=== PATIENT | male | born 1960 | race American Indian/Alaskan Native ===

== ENCOUNTER 2018-01-16 10:30 | Inpatient (IN) | payer MEDICAID, OTHER ==
--- NOTE | 2018-01-16 11:19 | ED PDOC ---
Arrival/HPI - History of Present Illness Time/Duration: 1-3 hours <John Finney - Last Filed: 01/16/18 13:53> <Tyrese Lawrence - Last Filed: 01/16/18 15:40> - General Chief Complaint: Shortness Of Breath Time Seen by Provider: 01/16/18 10:43 - History of Present Illness Narrative History of Present Illness (Text): Patient is a 57 year old male with a past medical history of DM2 and hypertension presenting to the emergency room with a past medical history of shortness of breath. He came home from work around 7 am feeling completely normal and went to sleep. Around 930am he woke up sweating and was very short of breath. "I was breathing very fast and could not catch my breath." This has never happened to him before. He attempted to take a shower but was still short of breath so he decided he had to come to the hospital. Other than the shortness of breath and diaphoresis, the patient denies any other complaints. Denies fevers, chills, nausea, vomiting, diarrhea, constipation, chest pain, abdominal pain, headaches, blurred vision, double vision, numbness tingling, sedentary lifestyle, leg pain, edema, recent surgery or recent travel. Patient moved to the [facility] from [place] years ago. Both of his parents from old age , but states that they never saw doctors so he does not know any family history of diseases or blood disorders. PMD: Dr. Momin (follows up with regularly every 6 months for blood work) (John Finney) Past Medical History - Provider Review Nursing Documentation Reviewed: Yes - Travel History Have you recently traveled outside [place] w/in the past 3 mons?: No - Cardiac Hx Hypertension: Yes - Endocrine/Metabolic Hx Diabetes Mellitus Type 2: Yes - Psychiatric Hx Substance Use: No <John Finney - Last Filed: 01/16/18 13:53> Family/Social History - Physician Review Nursing Documentation Reviewed: Yes Family/Social History: Unknown Family HX Smoking Status: Current Some Days Smoker Hx Alcohol Use: No Hx Substance Use: No <John Finney - Last Filed: 01/16/18 13:53> Allergies/Home Meds <John Finney - Last Filed: 01/16/18 13:53> <Tyrese Lawrence - Last Filed: 01/16/18 15:40> Allergies/Adverse Reactions: Allergies No Known Allergies Allergy (Verified 01/16/18 10:42) Home Medications: Home Meds Medication Instructions Recorded Confirmed metFORMIN [glucOPHAGE] 500 mg PO BID 01/16/18 01/16/18 Review of Systems - Physician Review All systems were reviewed & negative as marked: Yes - Review of Systems Constitutional: Normal. absent: Fatigue, Fevers Eyes: Normal. absent: Vision Changes ENT: Normal. absent: Sore Throat, Rhinorrhea, Sinus Congestion Respiratory: SOB (woke up out of sleep SOB). absent: Cough, Sputum, Wheezing Cardiovascular: Normal. absent: Chest Pain, Palpitations, Edema, Calf Pain, Syncope Gastrointestinal: Normal. absent: Abdominal Pain, Constipation, Diarrhea, Nausea, Vomiting Musculoskeletal: Normal. absent: Arthralgias, Back Pain Skin: Normal. absent: Rash, Pruritis Neurological: Normal. absent: Headache, Dizziness, Focal Weakness Endocrine: Diaphoresis (woke up out of sleep sweating) Hemo/Lymphatic: Normal Psychiatric: Normal <John Finney - Last Filed: 01/16/18 13:53> Physical Exam Vital Signs Reviewed: Yes Temperature: Afebrile Blood Pressure: Hypertensive Pulse: Tachycardic Respiratory Rate: Normal Appearance: Positive for: Well-Appearing, Non-Toxic, Comfortable Pain Distress: None Mental Status: Positive for: Alert and Oriented X 3 - Systems Exam Head: Present: Atraumatic, Normocephalic Pupils: Present: PERRL Extroacular Muscles: Present: EOMI Conjunctiva: Present: Normal Mouth: Present: Moist Mucous Membranes Nose (External): Present: Atraumatic Nose (Internal): Present: Normal Inspection, No Active Bleeding, Moist Neck: Present: Normal Range of Motion Respiratory/Chest: Present: Clear to Auscultation, Good Air Exchange, Other ( Patient states he feels like he has to actively work to breathe. "I do not feel normal."). No: Respiratory Distress, Accessory Muscle Use, Wheezes, Rales, Rhonchi Cardiovascular: Present: Regular Rate and Rhythm, Normal S1, S2. No: Murmurs Abdomen: No: Tenderness, Distention, Peritoneal Signs Upper Extremity: Present: Normal Inspection, NORMAL PULSES, Neurovascularly Intact. No: Cyanosis, Edema Lower Extremity: Present: Normal Inspection, NORMAL PULSES, Neurovascularly Intact. No: Edema, CALF TENDERNESS, Tenderness, Erythema Neurological: Present: GCS=15, CN II-XII Intact, Speech Normal, Motor Func Grossly Intact Skin: Present: Warm, Dry, Normal Color. No: Rashes Lymphatic: No: Cervical Adenopathy Psychiatric: Present: Alert, Oriented x 3, Normal Insight, Normal Concentration <John Finney - Last Filed: 01/16/18 13:53> Vital Signs Temp Pulse Resp BP Pulse Ox 01/16/18 12:31 100 H 18 164/98 H 98 01/16/18 11:00 18 92 L 01/16/18 10:39 97.2 F L 115 H 18 163/102 H 92 L Medical Decision Making Reassessment Condition: Improving,but remains with symptoms - Lab Interpretations I have reviewed the lab results: Yes - RAD Interpretation Certified Nurse Midwife: Radiologist - EKG Interpretation Interpreted by ED Physician: Yes Type: 12 lead EKG Comparison: No previous EKG avail. <John Finney - Last Filed: 01/16/18 13:53> <Tyrese Lawrence - Last Filed: 01/16/18 15:40> ED Course and Treatment: Patient is tachycardic and hypertensive on exam. He appears comfortable and speaking in full sentences but states he feels he has to work to breath. He was hypoxic upon arrival at 92%. Given aspirin, f/u blood work and CTA of chest 01/16/18 13:54 Chest CTA - No CT scan evidence of pulmonary embolism. Nonspecific right upper lobe infiltrate and smaller lingular infiltrate and pleural parenchymal change. Mild peribronchial changes are seen elsewhere. The infiltrate in the right upper lobe has some nodular component, and may reflect an infectious or other inflammatory process. However, this should be further evaluated and followed until resolution. Nonspecific scattered mediastinal lymph nodes, possibly reactive in origin. No pleural effusion seen. Discussed with patient the CT findings and need for further testing. Patient understands and is in agreement to be admitted to the hospital. (John Finney) 01/16/18 12:06 Trever Contreras is a 57 year old male whose past medical histroy includes hypertension and diabetes, presents to the emergency room with complaints of headache, shortness of breath, and cold sweats. In agreement with resident note. Patient was seen and evaluated with resident, came up with plan and treatment together. EKG: Ordered, reviewed, and independently interpreted the EKG. Rate : 109 BPM Rhythm : Sinus Tachycardia Interpretation : PVC and SIQ3T3 pattern. Case was discussed with Dr. Bai to admit for RUL PNA with r/o TB. Patient was immediately placed in isolation. He did not express any TB risk factors. He is from [facility]. He has no productive cough. (Tyrese Lawrence) - Lab Interpretations Lab Results: 01/16/18 11:15 01/16/18 11:15 Lab Results 01/16/18 11:15: Sodium 143, Potassium 3.7, Chloride 107, Carbon Dioxide 23, Anion Gap 17, BUN 5 L, Creatinine 0.8, Est GFR ( Amer) > 60, Est GFR (Non -Af Amer) > 60, Random Glucose 118 H, Calcium 8.6, Magnesium 1.7, Total Bilirubin 0.8, AST 23, ALT 25, Alkaline Phosphatase 80, Lactate Dehydrogenase 458, Total Creatine Kinase 126, Troponin I 0.03, NT-Pro-B Natriuret Pep 1450 H, Total Protein 7.2, Albumin 4.1, Globulin 3.1, Albumin/Globulin Ratio 1.3 01/16/18 11:15: PT 11.6, INR 1.01, APTT 27.0 01/16/18 11:15: WBC 8.5, RBC 4.83, Hgb 12.1 L, Hct 35.5 L, MCV 73.5 L, MCH 25.1 , MCHC 34.1, RDW 14.3, Plt Count 207, MPV 10.7, Gran % 66.3, Lymph % (Auto) 24.6 , [place] % (Auto) 7.6 H, Eos % (Auto) 1.3 L, Baso % (Auto) 0.2, Gran # 5.65, Lymph # (Auto) 2.1, [place] # (Auto) 0.7 H, Eos # (Auto) 0.1, Baso # (Auto) 0.02 - RAD Interpretation Narrative RAD Interpretations (Text): 01/16/18 13:53 Chest CTA - No CT scan evidence of pulmonary embolism. Nonspecific right upper lobe infiltrate and smaller lingular infiltrate and pleural parenchymal change. Mild peribronchial changes are seen elsewhere. The infiltrate in the right upper lobe has some nodular component, and may reflect an infectious or other inflammatory process. However, this should be further evaluated and followed until resolution. Nonspecific scattered mediastinal lymph nodes, possibly reactive in origin. No pleural effusion seen. (John Finney) Radiology Orders: 01/16/18 11:01 ANGIO CHEST PE PROTOCOL [CT] Stat - EKG Interpretation EKG Interpretation (Text): Sinus Tachycardia @109bpm, right axis deviation, S1 Q3 T3 pattern seen, 1 PVC noted. (John Finney) - Medication Orders Current Medication Orders: Amlodipine Besylate (Norvasc) 5 mg PO DAILY MARY Ceftriaxone Sodium (Rocephin 1 Gram Ivpb) 1 gm in 100 mls @ 100 mls/hr IVPB DAILY MARY PRN Reason: Protocol Azithromycin (Zithromax 500mg In Ns) 500 mg in 250 mls @ 167 mls/hr IVPB DAILY MARY PRN Reason: Protocol Insulin Human Regular (Humulin R Low) 0 units SC ACHS MARY PRN Reason: Protocol Pantoprazole Sodium (Protonix Inj) 40 mg IVP DAILY MARY Discontinued Medications Aspirin (Aspirin) 325 mg PO STAT STA Stop: 01/16/18 11:00 Last Admin: 01/16/18 11:10 Dose: 325 mg Azithromycin (Zithromax) 500 mg PO STAT STA PRN Reason: Protocol Stop: 01/16/18 13:33 Last Admin: 01/16/18 15:12 Dose: 500 mg Ceftriaxone Sodium (Rocephin 1 Gram Ivpb) 1 gm in 100 mls @ 200 mls/hr IVPB STAT STA PRN Reason: Protocol Stop: 01/16/18 14:01 Last Admin: 01/16/18 15:12 Dose: 200 mls/hr eMAR Start Stop Document 01/16/18 15:12 EWO (Rec: 01/16/18 15:13 THALIA [id number]) Intravenous Solution Start Date 01/16/18 Start Time 15:12 End Date 01/16/18 End time 15:42 Total Infusion Time 30 <John Finney - Last Filed: 01/16/18 13:53> - Scribe Statement The provider has reviewed the documentation as recorded by the Scribe <Tyrese Lawrence - Last Filed: 01/16/18 15:40> - Scribe Statement Sonia Hare Provider Scribe Attestation: All medical record entries made by the Scribe were at my direction and personally dictated by me. I have reviewed the chart and agree that the record accurately reflects my personal performance of the history, physical exam, medical decision making, and the department course for this patient. I have also personally directed, reviewed, and agree with the discharge instructions and disposition. (Tyrese Lawrence) Disposition/Present on Arrival - Present on Arrival Any Indicators Present on Arrival: No History of DVT/PE: No History of Uncontrolled Diabetes: No Urinary Catheter: No History of Decub. Ulcer: No History Surgical Site Infection Following: None - Disposition Have Diagnosis and Disposition been Completed?: Yes Disposition Time: 13:56 Isolation: Contact, Airborne Patient Plan: Telemetry <John Finney - Last Filed: 01/16/18 13:53> - Disposition Patient Plan: Admission <Tyrese Lawrence - Last Filed: 01/16/18 15:40> - Disposition Diagnosis: Infiltrate of lung present on imaging of chest Disposition: HOSPITALIZED Patient Problems: Current Active Problems Problem Status Onset Infiltrate of lung present on imaging of chest Acute Condition: FAIR
[2018-01-16 11:20] LABS: BASO # 0.02 K/mm3 (0.0-2.0); BASO % 0.2 % (0.0-3.0); EOS # 0.1 (0.0-0.7); EOS % 1.3 % (1.5-5.0); GRAN # 5.65 (1.4-6.5); GRAN % 66.3 % (50.0-68.0); HEMOGLOBIN 12.1 g/dL (14.0-18.0); LYMPH # 2.1 (1.2-3.4); LYMPH % 24.6 % (22.0-35.0); MEAN CELL VOLUME 73.5 fl (80.0-105.0); MEAN CORPUSCULAR HEMOGLOBIN 25.1 pg (25.0-35.0); MEAN CORPUSCULAR HGB CONC 34.1 g/dl (31.0-37.0); MEAN PLATELET VOLUME 10.7 fl (7.0-11.0); MONO # 0.7 (0.1-0.6); MONO % 7.6 % (1.0-6.0); RBC 4.83 10^6/uL (3.5-6.1); RED CELL DISTRIBUTION WIDTH 14.3 % (11.5-14.5); WHITE BLOOD COUNT 8.5 10^3/ul (4.5-11.0)
[2018-01-16 11:37] LABS: ALB/GLOB RATIO 1.3 (1.1-1.8); ALBUMIN 4.1 g/dL (3.0-4.8); ALT/SGPT 25 U/L (7-56); AST/SGOT 23 U/L (17-59); BLOOD UREA NITROGEN 5 mg/dL (7-21); CALCIUM 8.6 mg/dL (8.4-10.5); GFR AFRICAN-AMERICAN > 60; GFR NON-AFRICAN AMERICAN > 60
[2018-01-16 11:38] LABS: INR 1.01 (0.93-1.08); PROTHROMBIN TIME 11.6 SECONDS (9.4-12.5)
[2018-01-16 11:48] LABS: TROPONIN I 0.03 ng/mL
[2018-01-16 12:20] LABS: B-TYPE NATRIURETIC PEPTIDE 1450 pg/mL (0-450)
[2018-01-16] MEDS ORDERED: Iohexol 350 MG/100 ML VIAL ONE (12:29)
--- NOTE | 2018-01-16 13:11 | CT ---
PROCEDURE: CT Chest with contrast (Pulmonary Angiogram) HISTORY: sob COMPARISON: None available. TECHNIQUE: Axial computed tomography images were obtained of the chest in the pulmonary arterial phase of enhancement. Coronal and sagittal reformatted images were created and reviewed. Intravenous contrast dose: 100 cc Radiation dose: Total exam DLP = 445 mGy-cm. This CT exam was performed using one or more of the following dose reduction techniques: Automated exposure control, adjustment of the mA and/or kV according to patient size, and/or use of iterative reconstruction technique. FINDINGS: PULMONARY ARTERIES: Unremarkable. No pulmonary embolism. AORTA: No aneurysmal dilatation. Mild atherosclerotic change LUNGS: There is evidence of focal infiltrate within the right upper lobe inferiorly with mild adjacent reticular nodular change and alveolar density. There is also a small area of pleural parenchymal change or infiltrate seen in the inferior lingula. Mild interstitial changes and some mild patchy peribronchial inflammatory changes are also seen, nonspecific. PLEURAL SPACES: No pleural effusion. No pneumothorax. HEART: Cardiomegaly. No pericardial effusion. LYMPH NODES: Mild scattered mediastinal lymph nodes are seen in the prevascular region right paratracheal region, and precarinal region. No significant hilar adenopathy is noted. Thoracic inlet shows no evidence of adenopathy. Thyroid gland is top-normal in size. No supraclavicular or axillary adenopathy is appreciated. BONES, CHEST WALL: Unremarkable. No fracture or destructive lesion. Images of the upper abdomen are grossly unremarkable but limited by contrast timing. Visualized esophagus is within normal limits. Mild atherosclerotic change of the aorta is noted. OTHER FINDINGS: Unremarkable. IMPRESSION: No CT scan evidence of pulmonary embolism. Nonspecific right upper lobe infiltrate and smaller lingular infiltrate and pleural parenchymal change. Mild peribronchial changes are seen elsewhere. The infiltrate in the right upper lobe has some nodular component, and may reflect an infectious or other inflammatory process. However, this should be further evaluated and followed until resolution. Nonspecific scattered mediastinal lymph nodes, possibly reactive in origin. No pleural effusion seen.
[2018-01-16] MEDS ORDERED: cefTRIAXone 1 gm 1 GM/100 ML BAG IVPB STA (13:32)
--- NOTE | 2018-01-16 14:52 | CP.PCM.HP ---
<Romie Ibarra - Last Filed: 01/16/18 14:58> History of Present Illness - History of Present Illness History of Present Illness: H&P note for hospitalist service - Claribel Ibarra PGY2 cc: SOB HPI: Patient is a 57yo male with history of hypertension and DM type 2 that presents c/o shortness of breath that started in the morning. He reported being woken from his sleep feeling diaphoretic, short of breath and having heart palptiations. He stated that he had never experienced anything like this in the past and promptly called EMS. He denied taking any new medications, sick contacts, recent travel or any alleviating/exacerbating factors. He reported having worked over 16 hours yesterday without any issues or symptoms during that time. In the ED, CTA was obtained which revealed no PE however nonspecific RUL infiltrate and small lingular infiltrate was noted. He denied fevers, chills , cough, focal weakness, numbness, tingling, chest pain, abdominal pain, nausea , vomiting. 12point ROS as per HPI above otherwise negative PMH: as stated above PSH: denies Allergies: NKDA Medications: Metformin and unknown blood pressure medications, doesn't recall pharmacy Social Hx: Smokes 3-4 cig/day for over 10yrs, denies alcohol and illicit drug use; works as a director of security Family Hx: Parents of old age, unknown specific family history of illness PMD: Dr. Momin Present on Admission - Present on Admission Any Indicators Present on Admission: No Past Patient History - Past Social History Smoking Status: Current Some Days Smoker - CARDIAC Hx Hypertension: Yes - ENDOCRINE/METABOLIC Hx Diabetes Mellitus Type 2: Yes - PSYCHIATRIC Hx Substance Use: No - SURGICAL HISTORY Hx Surgeries: No Meds Allergies/Adverse Reactions: Allergies Allergy/AdvReac Type Severity Reaction Status Date / Time No Known Allergies Allergy Verified 01/16/18 18:36 Physical Exam - Constitutional Appears: No Acute Distress - Head Exam Head Exam: ATRAUMATIC, NORMAL INSPECTION, NORMOCEPHALIC - Eye Exam Eye Exam: EOMI, PERRL - ENT Exam ENT Exam: Mucous Membranes Moist - Neck Exam Neck exam: Positive for: Normal Inspection - Respiratory Exam Respiratory Exam: absent: Rales, Rhonchi, Wheezes - Cardiovascular Exam Cardiovascular Exam: RRR, +S1, +S2. absent: Gallop, Rubs - GI/Abdominal Exam GI & Abdominal Exam: Soft. absent: Distended, Firm, Guarding, Rebound, Tenderness - Neurological Exam Neurological exam: Alert, CN II-XII Intact, Oriented x3 - Psychiatric Exam Psychiatric exam: Normal Affect, Normal Mood - Skin Skin Exam: Dry, Intact, Normal Color, Warm Results - Vital Signs Recent Vital Signs: Last Vital Signs Temp 97.2 F L 01/16/18 10:39 Pulse 100 H 01/16/18 12:31 Resp 18 01/16/18 12:31 BP 164/98 H 01/16/18 12:31 Pulse Ox 98 01/16/18 12:31 - Labs Result Diagrams: 01/16/18 11:15 01/16/18 11:15 Labs: Laboratory Results - last 24 hr 01/16/18 01/16/18 01/16/18 11:15 11:15 11:15 WBC 8.5 RBC 4.83 Hgb 12.1 L Hct 35.5 L MCV 73.5 L MCH 25.1 MCHC 34.1 RDW 14.3 Plt Count 207 MPV 10.7 Gran % 66.3 Lymph % (Auto) 24.6 [place] % (Auto) 7.6 H Eos % (Auto) 1.3 L Baso % (Auto) 0.2 Gran # 5.65 Lymph # (Auto) 2.1 [place] # (Auto) 0.7 H Eos # (Auto) 0.1 Baso # (Auto) 0.02 PT 11.6 INR 1.01 APTT 27.0 Sodium 143 Potassium 3.7 Chloride 107 Carbon Dioxide 23 Anion Gap 17 BUN 5 L Creatinine 0.8 Est GFR ( Amer) > 60 Est GFR (Non-Af Amer) > 60 Random Glucose 118 H Calcium 8.6 Magnesium 1.7 Total Bilirubin 0.8 AST 23 ALT 25 Alkaline Phosphatase 80 Lactate Dehydrogenase 458 Total Creatine Kinase 126 Troponin I 0.03 NT-Pro-B Natriuret Pep 1450 H Total Protein 7.2 Albumin 4.1 Globulin 3.1 Albumin/Globulin Ratio 1.3 Assessment & Plan - Assessment and Plan (Free Text) Plan: 57yo male with history of HTN and DM type 2 presents c/o shortness of breath associated with palpitations and diaphoresis likely secondary to CAP vs TB 1. RUL infiltrate -Likely secondary to CAP however must rule out TB -Blood, urine culture pending -Sputum AFB culture x3 -Started on Rocephin and Azithromycin -Procalcitonin pending -EKG reviewed -CTA reviewed; no evidence of PE, RUL infiltrate and lingular infiltrate (see full report) -BNP elevated, obtain echocardiogram on Thursday if patient can be removed from isolation -Airborn isolation -ID consulted - Dr. Ferrara 2. DM type 2 -Low dose insulin sliding scale -Fingersticks ACHS -consistent carb diet 3. Hypertension -Started on norvasc 5mg po daily 4. GI/DVT prophylaxis -protonix/SCD's Patient seen and case discussed/reviewed with attending, Dr. Bai <Geovani Bai - Last Filed: 01/18/18 15:32> Results - Vital Signs Recent Vital Signs: Last Vital Signs Temp 98.4 F 01/18/18 15:04 Pulse 102 H 01/18/18 11:07 Resp 20 01/18/18 15:04 BP 156/98 H 01/18/18 11:07 Pulse Ox 100 01/17/18 14:00 - Labs Result Diagrams: 01/18/18 07:30 01/18/18 07:30 Labs: Laboratory Results - last 24 hr 01/17/18 01/17/18 01/17/18 07:00 11:35 15:57 WBC RBC Hgb Hct MCV MCH MCHC RDW Plt Count MPV Gran % Lymph % (Auto) [place] % (Auto) Eos % (Auto) Baso % (Auto) Gran # Lymph # (Auto) [place] # (Auto) Eos # (Auto) Baso # (Auto) Sodium Potassium Chloride Carbon Dioxide Anion Gap BUN Creatinine Est GFR ( Amer) Est GFR (Non-Af Amer) POC Glucose (mg/dL) 208 H Random Glucose Calcium Phosphorus Magnesium Total Bilirubin AST ALT Alkaline Phosphatase Total Protein Albumin Globulin Albumin/Globulin Ratio Procalcitonin 0.06 L Ur L.pneumophila Ag Negative 01/17/18 01/18/18 01/18/18 21:21 07:03 07:30 WBC 6.6 RBC 4.97 Hgb 12.3 L Hct 36.1 L MCV 72.6 L MCH 24.7 L MCHC 34.1 RDW 14.2 Plt Count 206 MPV 10.4 Gran % 32.7 L Lymph % (Auto) 52.6 H [place] % (Auto) 11.4 H Eos % (Auto) 3.0 Baso % (Auto) 0.3 Gran # 2.14 Lymph # (Auto) 3.5 H [place] # (Auto) 0.8 H Eos # (Auto) 0.2 Baso # (Auto) 0.02 Sodium Potassium Chloride Carbon Dioxide Anion Gap BUN Creatinine Est GFR ( Amer) Est GFR (Non-Af Amer) POC Glucose (mg/dL) 88 82 Random Glucose Calcium Phosphorus Magnesium Total Bilirubin AST ALT Alkaline Phosphatase Total Protein Albumin Globulin Albumin/Globulin Ratio Procalcitonin Ur L.pneumophila Ag 01/18/18 01/18/18 01/18/18 07:30 07:30 11:08 WBC RBC Hgb Hct MCV MCH MCHC RDW Plt Count MPV Gran % Lymph % (Auto) [place] % (Auto) Eos % (Auto) Baso % (Auto) Gran # Lymph # (Auto) [place] # (Auto) Eos # (Auto) Baso # (Auto) Sodium 143 Potassium 3.9 Chloride 104 Carbon Dioxide 27 Anion Gap 16 BUN 7 Creatinine 0.9 Est GFR ( Amer) > 60 Est GFR (Non-Af Amer) > 60 POC Glucose (mg/dL) 138 H Random Glucose 92 Calcium 8.9 Phosphorus 4.4 Magnesium 1.9 Total Bilirubin 0.7 AST 21 ALT 33 Alkaline Phosphatase 67 Total Protein 7.1 Albumin 3.9 Globulin 3.2 Albumin/Globulin Ratio 1.2 Procalcitonin Ur L.pneumophila Ag Attending/Attestation - Attestation I have personally seen and examined this patient.: Yes I have fully participated in the care of the patient.: Yes I have reviewed all pertinent clinical information: Yes Notes (Text): 01/18/18 15:30 attending note; Patient seen and examined with resident in ER. Patient is a 57-year-old male with a past medical history of hypertension, diabetes is admitted with shortness of breath. CT chest showed right upper lobe infiltrate. Currently on respiratory isolation to rule out tuberculosis. Patient is started on Rocephin and Zithromax for community-acquired pneumonia. ID evaluation requested. Hypertension; started on Norvasc. Diabetes; continue regular insulin sliding scale. the diagnosis and follow-up plan discussed with patient in detail. patient's by the bedside. Upon discharge the patient will be referred to [facility].
[2018-01-16 15:49] LABS: PH,URINE 6.5 (4.7-8.0); URINE BILIRUBIN NEGATIVE (NEGATIVE); URINE BLOOD NEGATIVE (NEGATIVE); URINE GLUCOSE (UA) NEGATIVE (NEGATIVE); URINE LEUKOCYTE ESTERASE NEGATIVE Leu/uL (NEGATIVE); URINE PROTEIN TRACE mg/dL (<30 mg/dL); URINE UROBILINOGEN 0.2 E.U./dL (<1 E.U./dL)
[2018-01-16 15:50] LABS: URINE APPEARANCE CLEAR (CLEAR); URINE COLOR LIGHT YELLOW (YELLOW)
[2018-01-16 15:59] LABS: URINE BACTERIA FEW (NEG); URINE RBC NEGATIVE /hpf (0-2)
[2018-01-16 16:12] LABS: BARBITURATES, UR NEGATIVE (NEGATIVE); BENZODIAZEPINES, UR NEGATIVE (NEGATIVE); OPIATES, UR NEGATIVE (NEGATIVE); PHENCYCLIDINE, UR NEGATIVE (NEGATIVE)
[2018-01-16] MEDS ORDERED: guaiFENesin 100 mg/5 ml Syrup UD PO PRN (16:32)
[2018-01-16] MEDS: Insulin Reg-LOW-Coverage SC SCH ×2 (17:11→22:00)
--- NOTE | 2018-01-16 19:46 | CARD ---
APPROVED REPORT EKG Measurement Heart [id number] <Conclusion> Sinus tachycardia with occasional premature ventricular complexes Possible Left atrial enlargement Rightward axis T wave abnormality, consider inferior ischemia Abnormal ECG
[2018-01-16 20:37] VITALS: BMI 28.5
[2018-01-16] MEDS ORDERED: Pneumococcal 23-Valent Vaccine IM ONE (20:38)
[2018-01-17 07:49] LABS: BASO # 0.02 K/mm3 (0.0-2.0); BASO % 0.3 % (0.0-3.0); EOS # 0.1 (0.0-0.7); EOS % 1.5 % (1.5-5.0); GRAN # 4.18 (1.4-6.5); GRAN % 56.2 % (50.0-68.0); HEMOGLOBIN 12.1 g/dL (14.0-18.0); LYMPH # 2.5 (1.2-3.4); LYMPH % 33.2 % (22.0-35.0); MEAN CELL VOLUME 72.9 fl (80.0-105.0); MEAN CORPUSCULAR HEMOGLOBIN 24.8 pg (25.0-35.0); MEAN CORPUSCULAR HGB CONC 34.1 g/dl (31.0-37.0); MEAN PLATELET VOLUME 10.8 fl (7.0-11.0); MONO # 0.7 (0.1-0.6); MONO % 8.8 % (1.0-6.0); RBC 4.87 10^6/uL (3.5-6.1); RED CELL DISTRIBUTION WIDTH 14.3 % (11.5-14.5); WHITE BLOOD COUNT 7.4 10^3/ul (4.5-11.0)
[2018-01-17 08:03] LABS: ALB/GLOB RATIO 1.2 (1.1-1.8); ALBUMIN 3.8 g/dL (3.0-4.8); ALT/SGPT 22 U/L (7-56); AST/SGOT 21 U/L (17-59); BLOOD UREA NITROGEN 8 mg/dL (7-21); CALCIUM 8.6 mg/dL (8.4-10.5); GFR AFRICAN-AMERICAN > 60; GFR NON-AFRICAN AMERICAN > 60
[2018-01-17] MEDS: Insulin Reg-LOW-Coverage SC SCH ×3 (09:10→17:05)
[2018-01-17] MEDS: cefTRIAXone 1 gm 1 GM/100 ML BAG IVPB SCH (09:12)
[2018-01-17] MEDS: Azithromycin 500MG/NS 250ml 500 MG/250 ML BAG IVPB SCH (10:51)
--- NOTE | 2018-01-17 14:21 | CP.PCM.PN ---
<Glenn Bustamante - Last Filed: 01/17/18 15:49> Subjective - Date & Time of Evaluation Date of Evaluation: 01/17/18 Time of Evaluation: 07:20 - Subjective Subjective: IM Progress Note for Hospitalist Service Patient seen and examined at bedside. No acute events overnight. Remains on iso precautions. Reports feeling much better today, breathing feels improved and no further palpitations reported. Denies chest pain, productive cough, emesis, nausea, diaphoresis. Objective - Vital Signs/Intake and Output Vital Signs (last 24 hours): Temp Pulse Resp BP Pulse Ox 99.0 F 97 H 20 152/99 H 92 L 01/17/18 06:00 01/17/18 09:13 01/17/18 06:00 01/17/18 09:13 01/17/18 06:00 Intake and Output: 01/17/18 01/17/18 06:59 18:59 Intake Total 180 1080 Balance 180 1080 - Medications Medications: Current Medications Amlodipine Besylate (Norvasc) 5 mg PO DAILY [facility] Last Admin: 01/17/18 09:13 Dose: 5 mg Guaifenesin (Robitussin) 100 mg PO Q4H PRN PRN Reason: Cough Ceftriaxone Sodium (Rocephin 1 Gram Ivpb) 1 gm in 100 mls @ 100 mls/hr IVPB DAILY MARY PRN Reason: Protocol Last Admin: 01/17/18 09:12 Dose: 100 mls/hr Azithromycin (Zithromax 500mg In Ns) 500 mg in 250 mls @ 167 mls/hr IVPB DAILY MARY PRN Reason: Protocol Last Admin: 01/17/18 10:51 Dose: 167 mls/hr Insulin Human Regular (Humulin R Low) 0 units SC ACHS MARY PRN Reason: Protocol Last Admin: 01/17/18 11:32 Dose: Not Given Pantoprazole Sodium (Protonix Inj) 40 mg IVP DAILY [facility] Last Admin: 01/17/18 09:12 Dose: 40 mg - Labs Labs: 01/17/18 07:00 01/17/18 07:00 PT 11.6 SECONDS (9.4-12.5) 01/16/18 11:15 INR 1.01 (0.93-1.08) 01/16/18 11:15 APTT 27.0 Seconds (25.1-36.5) 01/16/18 11:15 - Additional Findings Additional findings: - Constitutional Appears: No Acute Distress, Non-toxic - Head Exam Head Exam: ATRAUMATIC, NORMAL INSPECTION, NORMOCEPHALIC - Eye Exam Eye Exam: EOMI, Normal appearance. Absent: scleral icterus, conjunctival injection - ENT Exam ENT Exam: Mucous Membranes Moist - Neck Exam Neck exam: Positive for: Normal Inspection - Respiratory Exam Respiratory Exam: CTAB, Normal Breathing Pattern. absent: Rales, Rhonchi, Wheezes - Cardiovascular Exam Cardiovascular Exam: RRR, +S1, +S2. absent: Gallop, Rubs, JVD - GI/Abdominal Exam GI & Abdominal Exam: Soft. absent: Distended, Firm, Guarding, Rebound, Tenderness - Neurological Exam Neurological exam: Awake and alert, moving all extremities spontaneously, following all commands appropriately - Psychiatric Exam Psychiatric exam: Normal Affect, Normal Mood - Skin Skin Exam: Dry, Intact, Normal Color, Warm Assessment and Plan - Assessment and Plan (Free Text) Assessment: This is a 57 yo M with PMH of HTN and DM type 2 presents c/o shortness of breath associated with palpitations and diaphoresis likely secondary to CAP, pending TB rule out. Plan: 1) Shortness of breath with palpitations/diaphoresis -PE vs CAP vs -Likely secondary to CAP, however must rule out TB -Blood, urine culture pending -Sputum AFB culture x3, Quantiferon ordered -Started on Rocephin and Azithromycin -Procalcitonin negative, Legionella negative -EKG reviewed -CTA reviewed; no evidence of PE, notable for RUL infiltrate and lingular infiltrate -BNP elevated, obtain echocardiogram on Thursday if patient can be removed from isolation -Airborne isolation -ID consulted - Dr. Ferrara; recs HIV test as well 2) DM type 2 -Low dose insulin sliding scale -Fingersticks ACHS -consistent carb diet 3) Hypertension -continue norvasc 5mg po daily Dispo: Med/Surg, Iso for TB precaution, pending AFBs/Quantiferon FEN: HHD Access: Peripheral IV Consults: ID Ppx: protonix for GI, SCDs for DVT Patient seen and case discussed/reviewed with attending, Dr. Orr. <Jeanine Orr - Last Filed: 01/23/18 13:15> Objective - Vital Signs/Intake and Output Vital Signs (last 24 hours): Temp Pulse Resp BP Pulse Ox 98.0 F 96 H 20 149/78 100 01/23/18 05:56 01/23/18 09:30 01/23/18 05:56 01/23/18 09:30 01/23/18 05:56 Intake and Output: 01/23/18 01/23/18 06:59 18:59 Intake Total 180 Output Total 0 Balance 180 - Labs Labs: 01/23/18 06:30 01/23/18 06:30 PT 11.6 SECONDS (9.4-12.5) 01/16/18 11:15 INR 1.01 (0.93-1.08) 01/16/18 11:15 APTT 27.0 Seconds (25.1-36.5) 01/16/18 11:15 Attending/Attestation - Attestation I have personally seen and examined this patient.: Yes I have fully participated in the care of the patient.: Yes I have reviewed all pertinent clinical information, including history, physical exam and plan: Yes Notes (Text): I have seen and examined patient with the resident. Agree with the above note with the following additions/ exceptions: Briefly this is 57 year old male with a past medical history of hypertension, diabetes is admitted with shortness of breath. CT chest showed right upper lobe infiltrate. Currently on respiratory isolation to rule out tuberculosis. Patient does not have any significant sputum production.Quantiferon test ordered today. Legionella is negative. Patient is afebrile and nontoxic. Continue Rocephin and Zithromax for community-acquired pneumonia. ID evaluation appreciated. Upon discharge the patient will be referred to [facility] clinic.
--- NOTE | 2018-01-17 15:10 | CP.PCM.CON ---
History of Present Illness - History of Present Illness History of Present Illness: 57 year old male with PMH of HTN, DM came in to [place] complaining of worsening shortness of breath for the past 2 days. He was also complaining of diaphoresis and chest palpitations. He has dry cough, no fevers, no nausea or vomiting, no chest pain, no sore throat, no rhinorrhea, no abdominal pain, no diarrhea, no dysuria. CT chest was done which is showing right upper lobe and lingular infiltrates with some mediastinal lymphadenopathy. Infectious diseases consult is requested to further evaluate and manage. The patient migrated [place] the [place] ago from [facility]. He states he has not had a tuberculin skin test. He denies recent travel outside of [place] in the past 3 months. He works as a application security specialist in a building. Review of Systems - Review of Systems All systems: reviewed and no additional remarkable complaints except (as per HPI ) Past Patient History - Past Social History Smoking Status: Former Smoker - CARDIAC Hx Cardiac Disorders: Yes Hx Hypertension: Yes - PULMONARY Hx Respiratory Disorders: Yes (smoked 4 cig a day-QUIT 10 YRS AGO) Hx Pneumonia: Yes (RUL INFILTRATE 01-16-18) - NEUROLOGICAL Hx Neurological Disorder: No - HEENT Hx HEENT Problems: No - RENAL Hx Chronic Kidney Disease: No - ENDOCRINE/METABOLIC Hx Endocrine Disorders: Yes Hx Diabetes Mellitus Type 2: Yes - HEMATOLOGICAL/ONCOLOGICAL Hx Blood Disorders: No - INTEGUMENTARY Hx Dermatological Problems: Yes (VITILIGO) - MUSCULOSKELETAL/RHEUMATOLOGICAL Hx Musculoskeletal Disorders: No Hx Falls: Yes - GASTROINTESTINAL Hx Gastrointestinal Disorders: No - GENITOURINARY/GYNECOLOGICAL Hx Genitourinary Disorders: Yes Hx Prostate Problems: Yes - PSYCHIATRIC Hx Psychophysiologic Disorder: No Hx Substance Use: No - SURGICAL HISTORY Hx Surgeries: Yes Other/Comment: MINOR SX. I & D OF RECTAL ABSCESS Meds Allergies/Adverse Reactions: Allergies Allergy/AdvReac Type Severity Reaction Status Date / Time No Known Allergies Allergy Verified 01/16/18 18:36 - Medications Medications: Current Medications Amlodipine Besylate (Norvasc) 5 mg PO DAILY [facility] Guaifenesin (Robitussin) 100 mg PO Q4H PRN PRN Reason: Cough Ceftriaxone Sodium (Rocephin 1 Gram Ivpb) 1 gm in 100 mls @ 100 mls/hr IVPB DAILY [facility]ARY PRN Reason: Protocol Azithromycin (Zithromax 500mg In Ns) 500 mg in 250 mls @ 167 mls/hr IVPB DAILY MARY PRN Reason: Protocol Insulin Human Regular (Humulin R Low) 0 units SC ACHS MARY PRN Reason: Protocol Last Admin: 01/16/18 22:00 Dose: Not Given Pantoprazole Sodium (Protonix Inj) 40 mg IVP DAILY [facility] Physical Exam - Constitutional Appears: Non-toxic, No Acute Distress - Head Exam Head Exam: NORMAL INSPECTION - ENT Exam ENT Exam: Mucous Membranes Moist - Neck Exam Neck exam: Negative for: Lymphadenopathy, Meningismus - Respiratory Exam Respiratory Exam: Rales (on the right upper lung field and lower left lung field ) - Cardiovascular Exam Cardiovascular Exam: +S1, +S2 - GI/Abdominal Exam GI & Abdominal Exam: Soft. absent: Tenderness Results - Vital Signs Recent Vital Signs: Last Vital Signs Temp 97.2 F L 01/16/18 20:22 Pulse 89 01/16/18 20:22 Resp 18 01/16/18 20:22 BP 151/88 H 01/16/18 20:22 Pulse Ox 98 01/16/18 16:00 - Labs Result Diagrams: 01/17/18 07:00 01/17/18 07:00 Labs: Laboratory Results - last 24 hr 01/16/18 01/16/18 01/16/18 14:40 14:40 14:40 WBC RBC Hgb Hct MCV MCH MCHC RDW Plt Count MPV Gran % Lymph % (Auto) [place] % (Auto) Eos % (Auto) Baso % (Auto) Gran # Lymph # (Auto) [place] # (Auto) Eos # (Auto) Baso # (Auto) Sodium Potassium Chloride Carbon Dioxide Anion Gap BUN Creatinine Est GFR ( Amer) Est GFR (Non-Af Amer) POC Glucose (mg/dL) Random Glucose Calcium Total Bilirubin AST ALT Alkaline Phosphatase Troponin I Total Protein Albumin Globulin Albumin/Globulin Ratio Procalcitonin Urine Color Light yellow Urine Appearance Clear Urine pH 6.5 Ur Specific [place] <= 1.005 Urine Protein Trace H Urine Glucose (UA) Negative Urine Ketones Negative Urine Blood Negative Urine Nitrate Negative Urine Bilirubin Negative Urine Urobilinogen 0.2 Ur Leukocyte Esterase Negative Urine RBC Negative Urine WBC 1 - 3 Ur Epithelial Cells 1 - 3 Urine Bacteria Few Urine Opiates Screen Negative Urine Methadone Screen Negative Ur Barbiturates Screen Negative Ur Phencyclidine Scrn Negative Ur Amphetamines Screen Negative U Benzodiazepines Scrn Negative U Oth Cocaine Metabols Negative U Cannabinoids Screen Negative Ur L.pneumophila Ag Negative 01/16/18 01/16/18 01/17/18 15:40 21:19 07:00 WBC 7.4 RBC 4.87 Hgb 12.1 L Hct 35.5 L MCV 72.9 L MCH 24.8 L MCHC 34.1 RDW 14.3 Plt Count 212 MPV 10.8 Gran % 56.2 Lymph % (Auto) 33.2 [place] % (Auto) 8.8 H Eos % (Auto) 1.5 Baso % (Auto) 0.3 Gran # 4.18 Lymph # (Auto) 2.5 [place] # (Auto) 0.7 H Eos # (Auto) 0.1 Baso # (Auto) 0.02 Sodium Potassium Chloride Carbon Dioxide Anion Gap BUN Creatinine Est GFR ( Amer) Est GFR (Non-Af Amer) POC Glucose (mg/dL) 166 H Random Glucose Calcium Total Bilirubin AST ALT Alkaline Phosphatase Troponin I Total Protein Albumin Globulin Albumin/Globulin Ratio Procalcitonin 0.06 L Urine Color Urine Appearance Urine pH Ur Specific [place] Urine Protein Urine Glucose (UA) Urine Ketones Urine Blood Urine Nitrate Urine Bilirubin Urine Urobilinogen Ur Leukocyte Esterase Urine RBC Urine WBC Ur Epithelial Cells Urine Bacteria Urine Opiates Screen Urine Methadone Screen Ur Barbiturates Screen Ur Phencyclidine Scrn Ur Amphetamines Screen U Benzodiazepines Scrn U Oth Cocaine Metabols U Cannabinoids Screen Ur L.pneumophila Ag 01/17/18 01/17/18 01/17/18 07:00 07:00 07:29 WBC RBC Hgb Hct MCV MCH MCHC RDW Plt Count MPV Gran % Lymph % (Auto) [place] % (Auto) Eos % (Auto) Baso % (Auto) Gran # Lymph # (Auto) [place] # (Auto) Eos # (Auto) Baso # (Auto) Sodium 141 Potassium 4.0 Chloride 103 Carbon Dioxide 24 Anion Gap 18 BUN 8 Creatinine 1.1 Est GFR ( Amer) > 60 Est GFR (Non-Af Amer) > 60 POC Glucose (mg/dL) 159 H Random Glucose 169 H Calcium 8.6 Total Bilirubin 0.8 AST 21 ALT 22 Alkaline Phosphatase 65 Troponin I 0.06 D Total Protein 7.0 Albumin 3.8 Globulin 3.2 Albumin/Globulin Ratio 1.2 Procalcitonin Urine Color Urine Appearance Urine pH Ur Specific [place] Urine Protein Urine Glucose (UA) Urine Ketones Urine Blood Urine Nitrate Urine Bilirubin Urine Urobilinogen Ur Leukocyte Esterase Urine RBC Urine WBC Ur Epithelial Cells Urine Bacteria Urine Opiates Screen Urine Methadone Screen Ur Barbiturates Screen Ur Phencyclidine Scrn Ur Amphetamines Screen U Benzodiazepines Scrn U Oth Cocaine Metabols U Cannabinoids Screen Ur L.pneumophila Ag Assessment & Plan - Assessment and Plan (Free Text) Plan: Assessment consider right upper lobe pneumonia R/O TB in this patient with probable acute congestive heart failure HTN DM Plan Started Rocephin and Zithromax pending blood, sputum cx, PCT, urine Legionella Ag; follow up sputum AFB x 3 and Quantiferon TB test BNP is elevated - patient should get 2D echo will get HIV test as well
[2018-01-18] MEDS: Insulin Reg-LOW-Coverage SC SCH ×5 (00:21→22:10)
[2018-01-18] MEDS: Pantoprazole 40 mg EC Tab PO SCH (07:51)
[2018-01-18 08:13] LABS: BASO # 0.02 K/mm3 (0.0-2.0); BASO % 0.3 % (0.0-3.0); EOS # 0.2 (0.0-0.7); GRAN # 2.14 (1.4-6.5); GRAN % 32.7 % (50.0-68.0); HEMOGLOBIN 12.3 g/dL (14.0-18.0); LYMPH # 3.5 (1.2-3.4); LYMPH % 52.6 % (22.0-35.0); MEAN CELL VOLUME 72.6 fl (80.0-105.0); MEAN CORPUSCULAR HEMOGLOBIN 24.7 pg (25.0-35.0); MEAN CORPUSCULAR HGB CONC 34.1 g/dl (31.0-37.0); MEAN PLATELET VOLUME 10.4 fl (7.0-11.0); MONO # 0.8 (0.1-0.6); MONO % 11.4 % (1.0-6.0); RBC 4.97 10^6/uL (3.5-6.1); RED CELL DISTRIBUTION WIDTH 14.2 % (11.5-14.5); WHITE BLOOD COUNT 6.6 10^3/ul (4.5-11.0)
[2018-01-18 08:20] LABS: ALB/GLOB RATIO 1.2 (1.1-1.8); ALBUMIN 3.9 g/dL (3.0-4.8); ALT/SGPT 33 U/L (7-56); AST/SGOT 21 U/L (17-59); BLOOD UREA NITROGEN 7 mg/dL (7-21); CALCIUM 8.9 mg/dL (8.4-10.5); GFR AFRICAN-AMERICAN > 60; GFR NON-AFRICAN AMERICAN > 60
[2018-01-18] MEDS: cefTRIAXone 1 gm 1 GM/100 ML BAG IVPB SCH (11:07)
--- NOTE | 2018-01-18 12:42 | CP.PCM.PN ---
<Glenn Bustamante - Last Filed: 01/18/18 12:38> Subjective - Date & Time of Evaluation Date of Evaluation: 01/18/18 Time of Evaluation: 07:30 - Subjective Subjective: IM Progress Note for Hospitalist Service Patient seen and examined at bedside. No acute events overnight. Remains on iso precautions. Reports feeling much better today, breathing feels improved and no further palpitations reported. Denies chest pain, productive cough, emesis, nausea, diaphoresis. Pt reports been having difficulty mobilizing sputum for AFB cultures despite inducement by RT. Encouraged to put whatever sputum he coughs up after inducement into container, and encouraged pt not to worry about amount as sample is examined under microscopy. Objective - Vital Signs/Intake and Output Vital Signs (last 24 hours): Temp Pulse Resp BP Pulse Ox 98.6 F 102 H 20 156/98 H 100 01/17/18 14:00 01/18/18 11:07 01/17/18 14:00 01/18/18 11:07 01/17/18 14:00 Intake and Output: 01/18/18 01/18/18 06:59 18:59 Intake Total 120 Balance 120 - Medications Medications: Current Medications Amlodipine Besylate (Norvasc) 5 mg PO DAILY [facility] Last Admin: 01/18/18 11:07 Dose: 5 mg Guaifenesin (Robitussin) 100 mg PO Q4H PRN PRN Reason: Cough Ceftriaxone Sodium (Rocephin 1 Gram Ivpb) 1 gm in 100 mls @ 100 mls/hr IVPB DAILY MARY PRN Reason: Protocol Last Admin: 01/18/18 11:07 Dose: 100 mls/hr Azithromycin (Zithromax 500mg In Ns) 500 mg in 250 mls @ 167 mls/hr IVPB DAILY MARY PRN Reason: Protocol Last Admin: 01/17/18 10:51 Dose: 167 mls/hr Insulin Human Regular (Humulin R Low) 0 units SC ACHS MARY PRN Reason: Protocol Last Admin: 01/18/18 07:51 Dose: Not Given Pantoprazole Sodium (Protonix Ec Tab) 40 mg PO 0600 [facility] Last Admin: 01/18/18 07:51 Dose: 40 mg - Labs Labs: 01/18/18 07:30 01/18/18 07:30 PT 11.6 SECONDS (9.4-12.5) 04/28/18 11:15 INR 1.01 (0.93-1.08) 01/16/18 11:15 APTT 27.0 Seconds (25.1-36.5) 01/16/18 11:15 - Additional Findings Additional findings: - Constitutional Appears: No Acute Distress, Non-toxic - Head Exam Head Exam: ATRAUMATIC, NORMAL INSPECTION, NORMOCEPHALIC - Eye Exam Eye Exam: EOMI, Normal appearance. Absent: scleral icterus, conjunctival injection - ENT Exam ENT Exam: Mucous Membranes Moist - Neck Exam Neck exam: Positive for: Normal Inspection - Respiratory Exam Respiratory Exam: CTAB, Normal Breathing Pattern. absent: Rales, Rhonchi, Wheezes - Cardiovascular Exam Cardiovascular Exam: RRR, +S1, +S2. absent: Gallop, Rubs, JVD - GI/Abdominal Exam GI & Abdominal Exam: Soft. absent: Distended, Firm, Guarding, Rebound, Tenderness - Neurological Exam Neurological exam: Awake and alert, moving all extremities spontaneously, following all commands appropriately - Psychiatric Exam Psychiatric exam: Normal Affect, Normal Mood - Skin Skin Exam: Dry, Intact, Normal Color, Warm Assessment and Plan - Assessment and Plan (Free Text) Assessment: This is a 57 yo M with PMH of HTN and DM type 2 presents c/o shortness of breath associated with palpitations and diaphoresis likely secondary to CAP, pending TB rule out. Plan: 1) Shortness of breath with palpitations/diaphoresis - improved -PE vs CAP vs CHF -Likely secondary to CAP, however must rule out TB -Blood, urine culture pending -Sputum AFB culture x1, Quantiferon ordered -Started on Rocephin and Azithromycin -Procalcitonin negative, Legionella negative -EKG reviewed -CTA reviewed; no evidence of PE, notable for RUL infiltrate and lingular infiltrate -BNP elevated, obtain echocardiogram when no longer on iso precaution -Airborne isolation -ID consulted - Dr. Ferrara; recs HIV test as well, can d/c iso if 1 AFP negative given pt low risk 2) DM type 2 -Low dose insulin sliding scale -Fingersticks ACHS -consistent carb diet 3) Hypertension -continue norvasc 5mg po daily Dispo: Med/Surg, Iso for TB precaution, pending AFBs/Quantiferon FEN: HHD Access: Peripheral IV Consults: ID Ppx: Protonix for GI, SCDs for DVT Patient seen and case discussed/reviewed with attending, Dr. Bai <Geovani Bai - Last Filed: 01/18/18 15:35> Objective - Vital Signs/Intake and Output Vital Signs (last 24 hours): Temp Pulse Resp BP Pulse Ox 98.4 F 102 H 20 156/98 H 100 01/18/18 15:04 01/18/18 11:07 01/18/18 15:04 01/18/18 11:07 01/17/18 14:00 Intake and Output: 01/18/18 01/18/18 06:59 18:59 Intake Total 120 Balance 120 - Medications Medications: Current Medications Amlodipine Besylate (Norvasc) 5 mg PO DAILY [facility] Last Admin: 01/18/18 11:07 Dose: 5 mg Azithromycin (Zithromax) 500 mg PO DAILY [facility] Guaifenesin (Robitussin) 100 mg PO Q4H PRN PRN Reason: Cough Ceftriaxone Sodium (Rocephin 1 Gram Ivpb) 1 gm in 100 mls @ 100 mls/hr IVPB DAILY [facility]ARY PRN Reason: Protocol Last Admin: 01/18/18 11:07 Dose: 100 mls/hr Insulin Human Regular (Humulin R Low) 0 units SC ACHS MARY PRN Reason: Protocol Last Admin: 01/18/18 11:23 Dose: Not Given Lisinopril (Zestril) 30 mg PO DAILY [facility] Pantoprazole Sodium (Protonix Ec Tab) 40 mg PO 0600 [facility] Last Admin: 01/18/18 07:51 Dose: 40 mg - Labs Labs: 01/18/18 07:30 01/18/18 07:30 PT 11.6 SECONDS (9.4-12.5) 01/16/18 11:15 INR 1.01 (0.93-1.08) 01/16/18 11:15 APTT 27.0 Seconds (25.1-36.5) 01/16/18 11:15 Attending/Attestation - Attestation I have personally seen and examined this patient.: Yes I have fully participated in the care of the patient.: Yes I have reviewed all pertinent clinical information, including history, physical exam and plan: Yes Notes (Text): 01/18/18 15:34 attending note; Patient seen and examined with resident. Patient is a 57-year-old male with a past medical history of hypertension, diabetes is admitted with shortness of breath. CT chest showed right upper lobe infiltrate. Currently on respiratory isolation to rule out tuberculosis. Patient does not have any significant sputum production. Case discussed with ID in detail. Quantify on test is pending. Protocol stone is negative. Legionella is negative. Patient is afebrile and nontoxic. Patient is started on Rocephin and Zithromax for community-acquired pneumonia. ID evaluation requested. Hypertension; on Norvasc. lisinopril added. Diabetes; continue regular insulin sliding scale. echocardiogram done. Results pending. Upon discharge the patient will be referred to [facility] clinic. 01/18/18 15:35
[2018-01-18] MEDS: Azithromycin 500MG/NS 250ml 500 MG/250 ML BAG IVPB SCH (13:23)
--- NOTE | 2018-01-18 19:26 | CP.PCM.PN ---
Subjective - Date & Time of Evaluation Date of Evaluation: 01/18/18 Time of Evaluation: 12:40 - Subjective Subjective: No fevers, not in distress, breathing better, no cough. Objective - Vital Signs/Intake and Output Vital Signs (last 24 hours): Temp Pulse Resp BP Pulse Ox 98.6 F 102 H 20 156/103 H 100 01/17/18 14:00 01/17/18 14:00 01/17/18 14:00 01/17/18 14:00 01/17/18 14:00 Intake and Output: 01/18/18 01/18/18 06:59 18:59 Intake Total 120 Balance 120 - Medications Medications: Current Medications Amlodipine Besylate (Norvasc) 5 mg PO DAILY [facility] Last Admin: 01/17/18 09:13 Dose: 5 mg Guaifenesin (Robitussin) 100 mg PO Q4H PRN PRN Reason: Cough Ceftriaxone Sodium (Rocephin 1 Gram Ivpb) 1 gm in 100 mls @ 100 mls/hr IVPB DAILY [facility] PRN Reason: Protocol Last Admin: 01/17/18 09:12 Dose: 100 mls/hr Azithromycin (Zithromax 500mg In Ns) 500 mg in 250 mls @ 167 mls/hr IVPB DAILY [facility]ARY PRN Reason: Protocol Last Admin: 01/17/18 10:51 Dose: 167 mls/hr Insulin Human Regular (Humulin R Low) 0 units SC ACHS MARY PRN Reason: Protocol Last Admin: 01/18/18 07:51 Dose: Not Given Pantoprazole Sodium (Protonix Ec Tab) 40 mg PO 0600 [facility] Last Admin: 01/18/18 07:51 Dose: 40 mg - Labs Labs: 01/18/18 07:30 01/18/18 07:30 PT 11.6 SECONDS (9.4-12.5) 01/16/18 11:15 INR 1.01 (0.93-1.08) 01/16/18 11:15 APTT 27.0 Seconds (25.1-36.5) 01/16/18 11:15 - Constitutional Appears: Chronically Ill - Head Exam Head Exam: NORMAL INSPECTION - Respiratory Exam Respiratory Exam: Decreased Breath Sounds - Cardiovascular Exam Cardiovascular Exam: +S1, +S2 - GI/Abdominal Exam GI & Abdominal Exam: Soft. absent: Tenderness Assessment and Plan - Assessment and Plan (Free Text) Plan: Assessment consider right upper lobe pneumonia R/O TB in this patient with probable acute congestive heart failure HTN DM Plan Started Rocephin and Zithromax day 2; cultures have been negative, PCT is less than 0.2, urine Legionella Ag is negative; follow up sputum AFB x 3 and Quantiferon TB test BNP is elevated - follow up 2D echo results follow up HIV test as well
--- NOTE | 2018-01-18 19:38 | CARD ---
APPROVED REPORT EXAM: Two-dimensional and M-mode echocardiogram with Doppler and color Doppler. INDICATION Infection:Rule out subacute bacterial endocarditis 2D DIMENSIONS Left Atrium (2D)5.1 (1.6-4.0cm)IVSd1.4 (0.7-1.1cm) LVDd5.9 (3.9-5.9cm)PWd1.6 (0.7-1.1cm) LVDs5.1 (2.5-4.0cm)FS (%) 13.8 % LVEF (%)29.1 (>50%) M-Mode DIMENSIONS Aortic Root3.50 (2.2-3.7cm)Aortic Cusp Exc.1.80 (1.5-2.0cm) Aortic Valve AoV Peak Ucjxlins579.0cm/Neva Peak GR.5mmHg Mitral Valve E/A ratio0.0 TDI E/Lateral E'0.0E/Medial E'0.0 Pulmonary Valve PV Peak Voodiazb72.3cm/sPV Peak Grad.2mmHg Tricuspid Valve TR Peak [id number] [id number] Peak Gr.39mmHg [id number] LEFT VENTRICLE The Left Ventricle is borderline dilated. There is normal left ventricular wall thickness. The systolic function is severely impaired. There is global hypokinesis of the left ventricle. Transmitral Doppler flow pattern is Grade I-abnormal relaxation pattern. No left ventricle thrombus noted on this study. RIGHT VENTRICLE The right ventricle is normal size. There is normal right ventricular wall thickness. RV Systolic function is severely reduced. ATRIA The left atrium is moderately dilated. The right atrium is mildly dilated. AORTIC VALVE The aortic valve is normal in structure. There is mild aortic regurgitation. MITRAL VALVE The mitral valve is normal in structure. Mitral regurgitation is mild to moderate. TRICUSPID VALVE There is mild to moderate pulmonary hypertension. GREAT VESSELS The aortic root is normal in size. The IVC is normal in size and collapses >50% with inspiration. <Conclusion> The Left Ventricle is borderline dilated. There is normal left ventricular wall thickness. The systolic function is severely impaired. There is global hypokinesis of the left ventricle. Transmitral Doppler flow pattern is Grade I-abnormal relaxation pattern. No left ventricle thrombus noted on this study. There is mild aortic regurgitation. Mitral regurgitation is mild to moderate. There is mild to moderate pulmonary hypertension.
[2018-01-19] MEDS: Pantoprazole 40 mg EC Tab PO SCH (05:56)
[2018-01-19 08:05] LABS: BASO # 0.02 K/mm3 (0.0-2.0); BASO % 0.3 % (0.0-3.0); EOS # 0.2 (0.0-0.7); EOS % 2.4 % (1.5-5.0); GRAN # 2.39 (1.4-6.5); GRAN % 36.2 % (50.0-68.0); HEMOGLOBIN 12.8 g/dL (14.0-18.0); LYMPH # 3.6 (1.2-3.4); LYMPH % 53.8 % (22.0-35.0); MEAN CELL VOLUME 72.7 fl (80.0-105.0); MEAN CORPUSCULAR HEMOGLOBIN 25.1 pg (25.0-35.0); MEAN CORPUSCULAR HGB CONC 34.5 g/dl (31.0-37.0); MEAN PLATELET VOLUME 9.9 fl (7.0-11.0); MONO # 0.5 (0.1-0.6); MONO % 7.3 % (1.0-6.0); RBC 5.1 10^6/uL (3.5-6.1); WHITE BLOOD COUNT 6.6 10^3/ul (4.5-11.0)
[2018-01-19] MEDS: Insulin Reg-LOW-Coverage SC SCH ×4 (08:09→22:00)
[2018-01-19 08:38] LABS: ALB/GLOB RATIO 1.3 (1.1-1.8); ALBUMIN 4.2 g/dL (3.0-4.8); ALT/SGPT 30 U/L (7-56); AST/SGOT 18 U/L (17-59); BLOOD UREA NITROGEN 10 mg/dL (7-21); CALCIUM 8.9 mg/dL (8.4-10.5); GFR AFRICAN-AMERICAN > 60; GFR NON-AFRICAN AMERICAN > 60
[2018-01-19 11:15] LABS: TROPONIN I 0.02 ng/mL
[2018-01-19] MEDS: cefTRIAXone 1 gm 1 GM/100 ML BAG IVPB SCH (12:05)
--- NOTE | 2018-01-19 14:13 | CP.PCM.PN ---
<Glenn Bustamante - Last Filed: 01/19/18 15:23> Subjective - Date & Time of Evaluation Date of Evaluation: 01/19/18 Time of Evaluation: 07:30 - Subjective Subjective: IM Progress Note for Hospitalist Service Patient seen and examined at bedside. No acute events overnight. Remains on iso precautions. Reports continuing to feel better, breathing remains improved and no further palpitations reported. Denies chest pain, productive cough, emesis, nausea, diaphoresis. 2 AFBs submitted, pending 1 more today. Of note, Echo was obtained yesterday, and was concerning for severe systolic dysfunction with LVEF of ~30%. Reviewed patient's hx, and he again denies any personal or family hx of cardiac disease, denies any episodes of crushing chest pain, and is not aware of any exposure to rheumatic fever as a child. Continues to deny chest pain, shortness of breath, or LE edema. Objective - Vital Signs/Intake and Output Vital Signs (last 24 hours): Temp Pulse Resp BP Pulse Ox 98.2 F 69 20 112/71 100 01/19/18 13:59 01/19/18 12:07 01/19/18 08:28 01/19/18 12:07 01/17/18 14:00 Intake and Output: 01/19/18 01/19/18 06:59 18:59 Intake Total 780 Balance 780 - Medications Medications: Current Medications Amlodipine Besylate (Norvasc) 5 mg PO DAILY [facility] Last Admin: 01/19/18 12:05 Dose: 5 mg Azithromycin (Zithromax) 500 mg PO DAILY [facility] Last Admin: 01/19/18 12:06 Dose: 500 mg Carvedilol (Coreg) 3.125 mg PO BID [facility] Last Admin: 01/19/18 12:07 Dose: 3.125 mg Guaifenesin (Robitussin) 100 mg PO Q4H PRN PRN Reason: Cough Ceftriaxone Sodium (Rocephin 1 Gram Ivpb) 1 gm in 100 mls @ 100 mls/hr IVPB DAILY [facility] PRN Reason: Protocol Last Admin: 01/19/18 12:05 Dose: 100 mls/hr Insulin Human Regular (Humulin R Low) 0 units SC ACHS [facility] PRN Reason: Protocol Last Admin: 01/19/18 12:05 Dose: 1 units Lisinopril (Zestril) 30 mg PO DAILY [facility] Last Admin: 01/19/18 12:06 Dose: 30 mg Pantoprazole Sodium (Protonix Ec Tab) 40 mg PO 0600 [facility] Last Admin: 01/19/18 05:56 Dose: 40 mg Spironolactone (Aldactone) 25 mg PO BID [facility] Last Admin: 01/19/18 12:07 Dose: 25 mg - Labs Labs: 01/19/18 07:45 01/19/18 07:45 PT 11.6 SECONDS (9.4-12.5) 01/16/18 11:15 INR 1.01 (0.93-1.08) 01/16/18 11:15 APTT 27.0 Seconds (25.1-36.5) 01/16/18 11:15 - Additional Findings Additional findings: - Constitutional Appears: No Acute Distress, Non-toxic - Head Exam Head Exam: ATRAUMATIC, NORMAL INSPECTION, NORMOCEPHALIC - Eye Exam Eye Exam: EOMI, Normal appearance. Absent: scleral icterus, conjunctival injection - ENT Exam ENT Exam: Mucous Membranes Moist - Neck Exam Neck exam: Positive for: Normal Inspection - Respiratory Exam Respiratory Exam: CTAB, Normal Breathing Pattern. absent: Rales, Rhonchi, Wheezes - Cardiovascular Exam Cardiovascular Exam: RRR, +S1, +S2. absent: Gallop, Rubs, JVD - GI/Abdominal Exam GI & Abdominal Exam: Soft. absent: Distended, Firm, Guarding, Rebound, Tenderness - Neurological Exam Neurological exam: Awake and alert, moving all extremities spontaneously, following all commands appropriately - Psychiatric Exam Psychiatric exam: Normal Affect, Normal Mood - Skin Skin Exam: Dry, Intact, Normal Color, Warm Assessment and Plan - Assessment and Plan (Free Text) Assessment: This is a 57 yo M with PMH of HTN and DM type 2 presents c/o shortness of breath associated with palpitations and diaphoresis likely secondary to CAP, pending TB rule out. He is now also undergoing workup for newly discovered systolic dysfunction with reduced EF (30%). Plan: 1) Shortness of breath with palpitations/diaphoresis - improved -PE vs CAP vs CHF -Likely secondary to CAP, however must rule out TB -Blood, urine culture negative x72 hrs -Sputum AFB culture x3, Quantiferon ordered; 2 AFBs sent, pending 3rd -Continue Rocephin and Azithromycin -Procalcitonin negative, Legionella negative -EKG reviewed -CTA reviewed; no evidence of PE, notable for RUL infiltrate and lingular infiltrate -BNP elevated, Echo obtained that is notable for severe LV dysfxn with LV hypokinesis and LVEF 30%, Cardio consulted -Given Echo findings, concern for CHF, pt started on Coreg 3.125mg BID and Aldactone 25mg PO BID -Airborne isolation, can d/c after first negative AFB -ID consulted - Dr. Ferrara; pending AFBs, pending HIV test -Cardio consulted, appreciate their recs 2) DM type 2 -Low dose insulin sliding scale -Fingersticks ACHS -consistent carb diet 3) Hypertension -continue norvasc 5mg po daily, continue Lisinopril 30mg daily Dispo: Med/Surg, Iso for TB precaution, pending AFBs/Quantiferon, pending Cardio eval and recs FEN: HHD Access: Peripheral IV Consults: ID Ppx: Protonix for GI, SCDs for DVT Patient seen and case discussed/reviewed with attending, Dr. Bai <Geovani Bai - Last Filed: 01/19/18 17:25> Objective - Vital Signs/Intake and Output Vital Signs (last 24 hours): Temp Pulse Resp BP Pulse Ox 98.2 F 69 20 112/71 100 01/19/18 13:59 01/19/18 12:07 01/19/18 08:28 01/19/18 12:07 01/17/18 14:00 Intake and Output: 01/19/18 01/19/18 06:59 18:59 Intake Total 780 Balance 780 - Medications Medications: Current Medications Amlodipine Besylate (Norvasc) 5 mg PO DAILY [facility] Last Admin: 01/19/18 12:05 Dose: 5 mg Azithromycin (Zithromax) 500 mg PO DAILY [facility] Last Admin: 01/19/18 12:06 Dose: 500 mg Carvedilol (Coreg) 3.125 mg PO BID [facility] Last Admin: 01/19/18 12:07 Dose: 3.125 mg Enoxaparin Sodium (Lovenox) 40 mg SC DAILY [facility] PRN Reason: Protocol Guaifenesin (Robitussin) 100 mg PO Q4H PRN PRN Reason: Cough Ceftriaxone Sodium (Rocephin 1 Gram Ivpb) 1 gm in 100 mls @ 100 mls/hr IVPB DAILY [facility] PRN Reason: Protocol Last Admin: 01/19/18 12:05 Dose: 100 mls/hr Insulin Human Regular (Humulin R Low) 0 units SC ACHS [facility] PRN Reason: Protocol Last Admin: 01/19/18 17:05 Dose: Not Given Lisinopril (Zestril) 30 mg PO DAILY [facility] Last Admin: 01/19/18 12:06 Dose: 30 mg Pantoprazole Sodium (Protonix Ec Tab) 40 mg PO 0600 [facility] Last Admin: 01/19/18 05:56 Dose: 40 mg Spironolactone (Aldactone) 25 mg PO BID [facility] Last Admin: 01/19/18 12:07 Dose: 25 mg - Labs Labs: 01/19/18 07:45 01/19/18 07:45 PT 11.6 SECONDS (9.4-12.5) 01/16/18 11:15 INR 1.01 (0.93-1.08) 01/16/18 11:15 APTT 27.0 Seconds (25.1-36.5) 01/16/18 11:15 Attending/Attestation - Attestation I have personally seen and examined this patient.: Yes I have fully participated in the care of the patient.: Yes I have reviewed all pertinent clinical information, including history, physical exam and plan: Yes Notes (Text): 01/19/18 17:24 attending note; Patient seen and examined with resident. Patient is a 57-year-old male with a past medical history of hypertension, diabetes is admitted with shortness of breath. CT chest showed right upper lobe infiltrate. Currently on respiratory isolation to rule out tuberculosis. Patient does not have any significant sputum production. Case discussed with ID in detail. Quantify on test is pending. first AFB is negative. procalcitonin is negative.Legionella is negative. Patient is afebrile and nontoxic. Patient is started on Rocephin and Zithromax for community-acquired pneumonia. ID evaluation appreciated. echocardiogram showed ejection fraction of 29%. Patient has no significant cardiac history. Started on Coreg, Norvasc, lisinopril, Aldactone. Cardiology evaluation requested. Might need stress test as outpatient. Diabetes; continue regular insulin sliding scale. Upon discharge the patient will be referred to [facility] [place].
--- NOTE | 2018-01-19 16:36 | CP.PCM.PN ---
Subjective - Date & Time of Evaluation Date of Evaluation: 01/19/18 Time of Evaluation: 12:35 - Subjective Subjective: Breathing better, no fevers, not in distress. Objective - Vital Signs/Intake and Output Vital Signs (last 24 hours): Temp Pulse Resp BP Pulse Ox 98 F 104 H 20 158/109 H 100 01/19/18 08:28 01/18/18 16:15 01/19/18 08:28 01/18/18 16:15 01/17/18 14:00 Intake and Output: 01/19/18 01/19/18 06:59 18:59 Intake Total 780 Balance 780 - Medications Medications: Current Medications Amlodipine Besylate (Norvasc) 5 mg PO DAILY [facility] Last Admin: 01/18/18 11:07 Dose: 5 mg Azithromycin (Zithromax) 500 mg PO DAILY [facility] Guaifenesin (Robitussin) 100 mg PO Q4H PRN PRN Reason: Cough Ceftriaxone Sodium (Rocephin 1 Gram Ivpb) 1 gm in 100 mls @ 100 mls/hr IVPB DAILY [facility] PRN Reason: Protocol Last Admin: 01/18/18 11:07 Dose: 100 mls/hr Insulin Human Regular (Humulin R Low) 0 units SC ACHS [facility] PRN Reason: Protocol Last Admin: 01/19/18 08:09 Dose: Not Given Lisinopril (Zestril) 30 mg PO DAILY [facility] Pantoprazole Sodium (Protonix Ec Tab) 40 mg PO 0600 [facility] Last Admin: 01/19/18 05:56 Dose: 40 mg - Labs Labs: 01/19/18 07:45 01/19/18 07:45 PT 11.6 SECONDS (9.4-12.5) 01/16/18 11:15 INR 1.01 (0.93-1.08) 01/16/18 11:15 APTT 27.0 Seconds (25.1-36.5) 01/16/18 11:15 - Constitutional Appears: Chronically Ill - Head Exam Head Exam: NORMAL INSPECTION - ENT Exam ENT Exam: Mucous Membranes Moist - Neck Exam Neck Exam: absent: Meningismus - Respiratory Exam Respiratory Exam: Decreased Breath Sounds - Cardiovascular Exam Cardiovascular Exam: +S1, +S2 - GI/Abdominal Exam GI & Abdominal Exam: Soft. absent: Tenderness Assessment and Plan - Assessment and Plan (Free Text) Plan: Assessment consider right upper lobe pneumonia R/O TB in this patient with probable acute congestive heart failure HTN DM Plan continue Rocephin and Zithromax day 3 to complete 5-7 days; cultures have been negative, PCT is less than 0.2, urine Legionella Ag is negative; follow up sputum AFB and Quantiferon TB test BNP is elevated - reviewed 2D echo results and patient needs further Cardiology work up follow up HIV test as well
[2018-01-19] MEDS: Enoxaparin 40 mg Syringe SC SCH (17:52)
[2018-01-20 02:55] LABS: SOURCE SERUM
[2018-01-20] MEDS: Pantoprazole 40 mg EC Tab PO SCH (06:09)
[2018-01-20 06:30] LABS: TB ANTIGEN MINUS NIL <0.00 IU/mL
[2018-01-20] MEDS: Insulin Reg-LOW-Coverage SC SCH ×4 (07:54→16:48)
[2018-01-20 07:56] LABS: ALB/GLOB RATIO 1.2 (1.1-1.8); ALBUMIN 4.2 g/dL (3.0-4.8); ALT/SGPT 30 U/L (7-56); AST/SGOT 19 U/L (17-59); BLOOD UREA NITROGEN 13 mg/dL (7-21); CALCIUM 9.2 mg/dL (8.4-10.5); GFR AFRICAN-AMERICAN > 60; GFR NON-AFRICAN AMERICAN > 60
[2018-01-20] MEDS: cefTRIAXone 1 gm 1 GM/100 ML BAG IVPB SCH (10:58)
[2018-01-20] MEDS: Enoxaparin 40 mg Syringe SC SCH (10:59)
[2018-01-20] MEDS: Amoxicillin-Clav 875-125 mg Tab PO SCH ×2 (13:35→21:37)
--- NOTE | 2018-01-20 16:04 | CP.PCM.PN ---
Subjective - Date & Time of Evaluation Date of Evaluation: 01/20/18 Time of Evaluation: 12:55 - Subjective Subjective: Comfortable, improved breathing, no fevers, no nausea, no chest pain. Objective - Vital Signs/Intake and Output Vital Signs (last 24 hours): Temp Pulse Resp BP Pulse Ox 98.5 F 99 H 20 152/104 H 98 01/20/18 08:28 01/20/18 11:00 01/19/18 23:16 01/20/18 11:00 01/19/18 23:16 Intake and Output: 01/20/18 01/20/18 06:59 18:59 Intake Total 1240 Balance 1240 - Medications Medications: Current Medications Amlodipine Besylate (Norvasc) 5 mg PO DAILY [facility] Last Admin: 01/20/18 11:02 Dose: Not Given Amoxicillin/Clavulanate Potassium (Augmentin 875 Mg-125 Mg Tab) 1 tab PO Q12 [facility] PRN Reason: Protocol Stop: 01/22/18 10:01 Amoxicillin/Clavulanate Potassium (Augmentin 875 Mg-125 Mg Tab) 1 tab PO Q12 [facility] PRN Reason: Protocol Stop: 01/20/18 22:01 Azithromycin (Zithromax) 500 mg PO DAILY [facility] PRN Reason: Protocol Stop: 01/23/18 10:01 Carvedilol (Coreg) 3.125 mg PO BID [facility] Last Admin: 01/20/18 11:00 Dose: 3.125 mg Enoxaparin Sodium (Lovenox) 40 mg SC DAILY [facility] PRN Reason: Protocol Last Admin: 01/20/18 10:59 Dose: 40 mg Guaifenesin (Robitussin) 100 mg PO Q4H PRN PRN Reason: Cough Insulin Human Regular (Humulin R Low) 0 units SC ACHS [facility] PRN Reason: Protocol Last Admin: 01/20/18 07:54 Dose: Not Given Lisinopril (Zestril) 30 mg PO DAILY [facility] Last Admin: 01/20/18 10:59 Dose: 30 mg Pantoprazole Sodium (Protonix Ec Tab) 40 mg PO 0600 [facility] Last Admin: 01/20/18 06:09 Dose: 40 mg Spironolactone (Aldactone) 25 mg PO BID [facility] Last Admin: 01/20/18 11:00 Dose: 25 mg - Labs Labs: 01/19/18 07:45 01/20/18 07:00 PT 11.6 SECONDS (9.4-12.5) 01/16/18 11:15 INR 1.01 (0.93-1.08) 01/16/18 11:15 APTT 27.0 Seconds (25.1-36.5) 01/16/18 11:15 - Constitutional Appears: Non-toxic, Chronically Ill - Head Exam Head Exam: NORMAL INSPECTION - ENT Exam ENT Exam: Mucous Membranes Moist - Neck Exam Neck Exam: absent: Meningismus - Respiratory Exam Respiratory Exam: Decreased Breath Sounds - Cardiovascular Exam Cardiovascular Exam: +S1, +S2 - GI/Abdominal Exam GI & Abdominal Exam: Soft. absent: Tenderness Assessment and Plan - Assessment and Plan (Free Text) Plan: Assessment consider right upper lobe pneumonia in this patient with probable acute congestive heart failure, need to determine etiology of cardiomyopathy HTN DM Plan switched antibiotics to Augmentin and Zithromax day 4 to complete 5-7 days; cultures have been negative, PCT is less than 0.2, urine Legionella Ag is negative; sputum AFB and Quantiferon TB test are negative BNP is elevated - reviewed 2D echo results and patient needs further Cardiology work up follow up HIV test as well
--- NOTE | 2018-01-20 17:24 | CP.PCM.PN ---
<Glenn Bustamante - Last Filed: 01/20/18 17:19> Subjective - Date & Time of Evaluation Date of Evaluation: 01/20/18 Time of Evaluation: 07:30 - Subjective Subjective: IM Progress Note for Hospitalist Service Patient seen and examined at bedside. No acute events overnight. 1st AFB was negative and quantiferon test was negative; after discussion with ID, iso precautions discontinued. Reports continuing to feel better, breathing remains improved and no further palpitations reported. Denies chest pain, productive cough, emesis, nausea, diaphoresis. Now transitioned to PO antibiotics as per ID. Objective - Vital Signs/Intake and Output Vital Signs (last 24 hours): Temp Pulse Resp BP Pulse Ox 98.5 F 99 H 20 152/104 H 98 01/20/18 08:28 01/20/18 11:00 01/19/18 23:16 01/20/18 11:00 01/19/18 23:16 Intake and Output: 01/20/18 01/20/18 06:59 18:59 Intake Total 1240 1020 Balance 1240 1020 - Medications Medications: Current Medications Amlodipine Besylate (Norvasc) 5 mg PO DAILY [facility] Last Admin: 01/20/18 11:02 Dose: Not Given Amoxicillin/Clavulanate Potassium (Augmentin 875 Mg-125 Mg Tab) 1 tab PO Q12 [facility] PRN Reason: Protocol Stop: 01/22/18 10:01 Amoxicillin/Clavulanate Potassium (Augmentin 875 Mg-125 Mg Tab) 1 tab PO Q12 [facility] PRN Reason: Protocol Stop: 01/20/18 22:01 Last Admin: 01/20/18 13:35 Dose: 1 tab Azithromycin (Zithromax) 500 mg PO DAILY [facility] PRN Reason: Protocol Stop: 01/23/18 10:01 Carvedilol (Coreg) 3.125 mg PO BID [facility] Last Admin: 01/20/18 11:00 Dose: 3.125 mg Enoxaparin Sodium (Lovenox) 40 mg SC DAILY [facility] PRN Reason: Protocol Last Admin: 01/20/18 10:59 Dose: 40 mg Guaifenesin (Robitussin) 100 mg PO Q4H PRN PRN Reason: Cough Insulin Human Regular (Humulin R Low) 0 units SC ACHS [facility] PRN Reason: Protocol Last Admin: 01/20/18 16:48 Dose: Not Given Lisinopril (Zestril) 30 mg PO DAILY [facility] Last Admin: 01/20/18 10:59 Dose: 30 mg Pantoprazole Sodium (Protonix Ec Tab) 40 mg PO 0600 [facility] Last Admin: 01/20/18 06:09 Dose: 40 mg Spironolactone (Aldactone) 25 mg PO BID [facility] Last Admin: 01/20/18 11:00 Dose: 25 mg - Labs Labs: 01/19/18 07:45 01/20/18 07:00 PT 11.6 SECONDS (9.4-12.5) 01/16/18 11:15 INR 1.01 (0.93-1.08) 01/16/18 11:15 APTT 27.0 Seconds (25.1-36.5) 01/16/18 11:15 - Additional Findings Additional findings: - Constitutional Appears: No Acute Distress, Non-toxic - Head Exam Head Exam: ATRAUMATIC, NORMAL INSPECTION, NORMOCEPHALIC - Eye Exam Eye Exam: EOMI, Normal appearance. Absent: scleral icterus, conjunctival injection - ENT Exam ENT Exam: Mucous Membranes Moist - Neck Exam Neck exam: Positive for: Normal Inspection - Respiratory Exam Respiratory Exam: CTAB, Normal Breathing Pattern. absent: Rales, Rhonchi, Wheezes - Cardiovascular Exam Cardiovascular Exam: RRR, +S1, +S2. absent: Gallop, Rubs, JVD - GI/Abdominal Exam GI & Abdominal Exam: Soft. absent: Distended, Firm, Guarding, Rebound, Tenderness - Neurological Exam Neurological exam: Awake and alert, moving all extremities spontaneously, following all commands appropriately - Psychiatric Exam Psychiatric exam: Normal Affect, Normal Mood - Skin Skin Exam: Dry, Intact, Normal Color, Warm Assessment and Plan - Assessment and Plan (Free Text) Assessment: This is a 57 yo M with PMH of HTN and DM type 2 presents c/o shortness of breath associated with palpitations and diaphoresis likely secondary to CAP, pending TB rule out. AFBs and Quantiferon negative. He is now also undergoing workup for newly discovered systolic dysfunction with reduced EF (30%). Plan: 1) Shortness of breath with palpitations/diaphoresis - improved -PE vs CAP vs CHF -TB unlikely, prelim AFBs x3 negative, Quantiferon negative -Blood, urine culture negative x72 hrs -Procalcitonin negative, Legionella negative -CTA reviewed; no evidence of PE, notable for RUL infiltrate and lingular infiltrate -BNP elevated, Echo obtained that is notable for severe LV dysfxn with LV hypokinesis and LVEF 30% -Cardio consulted, appreciate their recs -Given Echo findings, concern for CHF, pt started on Coreg 3.125mg BID and Aldactone 25mg PO BID -Airborne isolation d/c'ed, ID aware and agrees -ID consulted - Dr. Ferrara; pending HIV test results, switch to oral Augmentin and Zithromax for completion of 5-7 day course 2) DM type 2 -Low dose insulin sliding scale -Fingersticks ACHS -consistent carb diet 3) Hypertension -continue norvasc 5mg po daily, given still elevated BPs in setting of newly discovered reduced EF, increasing Lisinopril to 40mg daily Dispo: Med/Surg, Iso precautions d/c, pending Cardio eval and recs FEN: HHD Access: Peripheral IV Consults: ID, Cardio Ppx: Protonix for GI, SCDs for DVT Patient seen and case discussed/reviewed with attending, Dr. Bai <Geovani Bai - Last Filed: 01/20/18 17:40> Objective - Vital Signs/Intake and Output Vital Signs (last 24 hours): Temp Pulse Resp BP Pulse Ox 98.5 F 99 H 20 152/104 H 98 01/20/18 08:28 01/20/18 11:00 01/19/18 23:16 01/20/18 11:00 01/19/18 23:16 Intake and Output: 01/20/18 01/20/18 06:59 18:59 Intake Total 1240 1020 Balance 1240 1020 - Medications Medications: Current Medications Amlodipine Besylate (Norvasc) 5 mg PO DAILY [facility] Last Admin: 01/20/18 11:02 Dose: Not Given Amoxicillin/Clavulanate Potassium (Augmentin 875 Mg-125 Mg Tab) 1 tab PO Q12 [facility] PRN Reason: Protocol Stop: 01/22/18 10:01 Amoxicillin/Clavulanate Potassium (Augmentin 875 Mg-125 Mg Tab) 1 tab PO Q12 [facility] PRN Reason: Protocol Stop: 01/20/18 22:01 Last Admin: 01/20/18 13:35 Dose: 1 tab Azithromycin (Zithromax) 500 mg PO DAILY [facility] PRN Reason: Protocol Stop: 01/23/18 10:01 Carvedilol (Coreg) 3.125 mg PO BID [facility] Last Admin: 01/20/18 11:00 Dose: 3.125 mg Enoxaparin Sodium (Lovenox) 40 mg SC DAILY [facility] PRN Reason: Protocol Last Admin: 01/20/18 10:59 Dose: 40 mg Guaifenesin (Robitussin) 100 mg PO Q4H PRN PRN Reason: Cough Insulin Human Regular (Humulin R Low) 0 units SC ACHS [facility] PRN Reason: Protocol Last Admin: 01/20/18 16:48 Dose: Not Given Lisinopril (Zestril) 40 mg PO DAILY [facility] Pantoprazole Sodium (Protonix Ec Tab) 40 mg PO 0600 [facility] Last Admin: 01/20/18 06:09 Dose: 40 mg Spironolactone (Aldactone) 25 mg PO BID [facility] Last Admin: 01/20/18 11:00 Dose: 25 mg - Labs Labs: 01/19/18 07:45 01/20/18 07:00 PT 11.6 SECONDS (9.4-12.5) 01/16/18 11:15 INR 1.01 (0.93-1.08) 01/16/18 11:15 APTT 27.0 Seconds (25.1-36.5) 01/16/18 11:15 Attending/Attestation - Attestation I have personally seen and examined this patient.: Yes I have fully participated in the care of the patient.: Yes I have reviewed all pertinent clinical information, including history, physical exam and plan: Yes Notes (Text): 01/20/18 17:39 attending note; Patient seen and examined with resident. Patient is a 57-year-old male with a past medical history of hypertension, diabetes is admitted with shortness of breath. CT chest showed right upper lobe infiltrate. Currently on respiratory isolation to rule out tuberculosis. Patient does not have any significant sputum production. Case discussed with ID in detail. Quantify on test is negative. first AFB is negative. Isolation discontinued. procalcitonin is negative.Legionella is negative. Patient is afebrile and nontoxic. Started on Augmentin and Zithromax. echocardiogram showed ejection fraction of 29%. Patient has no significant cardiac history. Started on Coreg, Norvasc, lisinopril, Aldactone. Awaiting cardiology evaluation. Diabetes; continue regular insulin sliding scale. Upon discharge the patient will be [place] [facility] [place] 01/20/18 17:39
[2018-01-21] MEDS: Pantoprazole 40 mg EC Tab PO SCH (06:33)
[2018-01-21 08:17] LABS: BASO # 0.02 K/mm3 (0.0-2.0); BASO % 0.3 % (0.0-3.0); EOS # 0.2 (0.0-0.7); EOS % 3.3 % (1.5-5.0); GRAN # 2.04 (1.4-6.5); GRAN % 33.2 % (50.0-68.0); HEMOGLOBIN 12.6 g/dL (14.0-18.0); LYMPH # 3.4 (1.2-3.4); LYMPH % 54.6 % (22.0-35.0); MEAN CELL VOLUME 72.9 fl (80.0-105.0); MEAN CORPUSCULAR HEMOGLOBIN 25.1 pg (25.0-35.0); MEAN CORPUSCULAR HGB CONC 34.5 g/dl (31.0-37.0); MEAN PLATELET VOLUME 10.2 fl (7.0-11.0); MONO # 0.5 (0.1-0.6); MONO % 8.6 % (1.0-6.0); RBC 5.01 10^6/uL (3.5-6.1); WHITE BLOOD COUNT 6.1 10^3/ul (4.5-11.0)
[2018-01-21 08:29] LABS: ALB/GLOB RATIO 1.4 (1.1-1.8); ALBUMIN 4.2 g/dL (3.0-4.8); ALT/SGPT 27 U/L (7-56); AST/SGOT 17 U/L (17-59); BLOOD UREA NITROGEN 15 mg/dL (7-21); GFR AFRICAN-AMERICAN > 60; GFR NON-AFRICAN AMERICAN > 60
[2018-01-21] MEDS: Amoxicillin-Clav 875-125 mg Tab PO SCH ×2 (10:58→21:16)
--- NOTE | 2018-01-21 13:51 | CP.PCM.PN ---
<Glenn Bustamante - Last Filed: 01/21/18 13:48> Subjective - Date & Time of Evaluation Date of Evaluation: 01/21/18 Time of Evaluation: 07:30 - Subjective Subjective: IM Progress Note for Hospitalist Service Patient seen and examined at bedside. No acute events overnight. AFB x3 and quantiferon tests were negative, iso precautions discontinued. Reports continuing to feel better, breathing remains improved and no further palpitations reported. Denies chest pain, productive cough, emesis, nausea, diaphoresis. Pending cardiac cath tomorrow as per cardio. Objective - Vital Signs/Intake and Output Vital Signs (last 24 hours): Temp Pulse Resp BP Pulse Ox 97.9 F 89 20 139/92 H 99 01/21/18 06:00 01/21/18 10:59 01/21/18 06:00 01/21/18 10:59 01/21/18 06:00 Intake and Output: 01/21/18 01/21/18 06:59 18:59 Intake Total 720 Balance 720 - Medications Medications: Current Medications Amlodipine Besylate (Norvasc) 5 mg PO DAILY [facility] Last Admin: 01/21/18 10:59 Dose: 5 mg Amoxicillin/Clavulanate Potassium (Augmentin 875 Mg-125 Mg Tab) 1 tab PO Q12 [facility] PRN Reason: Protocol Stop: 01/22/18 10:01 Last Admin: 01/21/18 10:58 Dose: 1 tab Azithromycin (Zithromax) 500 mg PO DAILY [facility] PRN Reason: Protocol Stop: 01/23/18 10:01 Last Admin: 01/21/18 10:58 Dose: 500 mg Carvedilol (Coreg) 3.125 mg PO BID [facility] Last Admin: 01/21/18 10:58 Dose: 3.125 mg Guaifenesin (Robitussin) 100 mg PO Q4H PRN PRN Reason: Cough Insulin Human Regular (Humulin R Low) 0 units SC ACHS [facility] PRN Reason: Protocol Last Admin: 01/20/18 16:48 Dose: Not Given Lisinopril (Zestril) 40 mg PO DAILY [facility] Last Admin: 01/21/18 10:59 Dose: 40 mg Pantoprazole Sodium (Protonix Ec Tab) 40 mg PO 0600 [facility] Last Admin: 01/21/18 06:33 Dose: 40 mg Spironolactone (Aldactone) 25 mg PO BID [facility] Last Admin: 01/21/18 10:59 Dose: 25 mg - Labs Labs: 01/21/18 08:00 01/21/18 08:00 PT 11.6 SECONDS (9.4-12.5) 01/16/18 11:15 INR 1.01 (0.93-1.08) 01/16/18 11:15 APTT 27.0 Seconds (25.1-36.5) 01/16/18 11:15 - Additional Findings Additional findings: - Constitutional Appears: No Acute Distress, Non-toxic - Head Exam Head Exam: ATRAUMATIC, NORMAL INSPECTION, NORMOCEPHALIC - Eye Exam Eye Exam: EOMI, Normal appearance. Absent: scleral icterus, conjunctival injection - ENT Exam ENT Exam: Mucous Membranes Moist - Neck Exam Neck exam: Positive for: Normal Inspection - Respiratory Exam Respiratory Exam: CTAB, Normal Breathing Pattern. absent: Rales, Rhonchi, Wheezes - Cardiovascular Exam Cardiovascular Exam: RRR, +S1, +S2. absent: Gallop, Rubs, JVD - GI/Abdominal Exam GI & Abdominal Exam: Soft, Normal Bowel sounds. absent: Distended, Firm, Guarding, Rebound, Tenderness - Neurological Exam Neurological exam: Awake and alert, moving all extremities spontaneously, following all commands appropriately, normal gait in room - Psychiatric Exam Psychiatric exam: Normal Affect, Normal Mood - Skin Skin Exam: Dry, Intact, Normal Color, Warm Assessment and Plan - Assessment and Plan (Free Text) Assessment: This is a 57 yo M with PMH of HTN and DM type 2 presents c/o shortness of breath associated with palpitations and diaphoresis likely secondary to CAP, pending TB rule out. AFBs and Quantiferon negative. He is now also undergoing workup for newly discovered systolic dysfunction with reduced EF (30%), pending cardiac cath tomorrow. Plan: 1) Shortness of breath with palpitations/diaphoresis - improved -PE vs CAP vs CHF -TB unlikely, prelim AFBs x3 negative, Quantiferon negative -Blood, urine culture negative x72 hrs -Procalcitonin negative, Legionella negative -CTA reviewed; no evidence of PE, notable for RUL infiltrate and lingular infiltrate -BNP elevated, Echo obtained that is notable for severe LV dysfxn with LV hypokinesis and LVEF 30% -Cardio consulted, appreciate their recs; pending cardiac cath tomorrow, so NPO after midnight. -Given Echo findings, concern for CHF, pt started on Coreg 3.125mg BID and Aldactone 25mg PO BID -Airborne isolation d/c'ed, ID aware and agrees -ID consulted - Dr. Ferrara; pending HIV test results, switch to oral Augmentin and Zithromax for completion of 5-7 day course (today day #01/25) 2) DM type 2 -Low dose insulin sliding scale -Fingersticks ACHS -consistent carb diet 3) Hypertension -continue norvasc 5mg po daily, given still elevated BPs in setting of newly discovered reduced EF, increasing Lisinopril to 40mg daily Dispo: Med/Surg, completing abx course, pending cardiac cath tomorrow FEN: HHD, NPO after midnight for cath Access: Peripheral IV Consults: ID, Cardio Ppx: Protonix for GI, SCDs for DVT Patient seen and case discussed/reviewed with attending, Dr. Bai <Geovani Bai - Last Filed: 01/21/18 14:24> Objective - Vital Signs/Intake and Output Vital Signs (last 24 hours): Temp Pulse Resp BP Pulse Ox 97.9 F 89 20 139/92 H 99 01/21/18 06:00 01/21/18 10:59 01/21/18 06:00 01/21/18 10:59 01/21/18 06:00 Intake and Output: 01/21/18 01/21/18 06:59 18:59 Intake Total 720 Balance 720 - Medications Medications: Current Medications Amlodipine Besylate (Norvasc) 5 mg PO DAILY [facility] Last Admin: 01/21/18 10:59 Dose: 5 mg Amoxicillin/Clavulanate Potassium (Augmentin 875 Mg-125 Mg Tab) 1 tab PO Q12 [facility] PRN Reason: Protocol Stop: 01/22/18 10:01 Last Admin: 01/21/18 10:58 Dose: 1 tab Azithromycin (Zithromax) 500 mg PO DAILY [facility] PRN Reason: Protocol Stop: 01/23/18 10:01 Last Admin: 01/21/18 10:58 Dose: 500 mg Carvedilol (Coreg) 3.125 mg PO BID [facility] Last Admin: 01/21/18 10:58 Dose: 3.125 mg Guaifenesin (Robitussin) 100 mg PO Q4H PRN PRN Reason: Cough Insulin Human Regular (Humulin R Low) 0 units SC ACHS [facility] PRN Reason: Protocol Last Admin: 01/20/18 16:48 Dose: Not Given Lisinopril (Zestril) 40 mg PO DAILY [facility] Last Admin: 01/21/18 10:59 Dose: 40 mg Pantoprazole Sodium (Protonix Ec Tab) 40 mg PO 0600 [facility] Last Admin: 01/21/18 06:33 Dose: 40 mg Spironolactone (Aldactone) 25 mg PO BID [facility] Last Admin: 01/21/18 10:59 Dose: 25 mg - Labs Labs: 01/21/18 08:00 01/21/18 08:00 PT 11.6 SECONDS (9.4-12.5) 01/16/18 11:15 INR 1.01 (0.93-1.08) 01/16/18 11:15 APTT 27.0 Seconds (25.1-36.5) 01/16/18 11:15 Attending/Attestation - Attestation I have personally seen and examined this patient.: Yes I have fully participated in the care of the patient.: Yes I have reviewed all pertinent clinical information, including history, physical exam and plan: Yes Notes (Text): 01/21/18 14:21 attending note; Patient seen and examined with resident. Patient is a 57-year-old male with a past medical history of hypertension, diabetes is admitted with shortness of breath. CT chest showed right upper lobe infiltrate. Currently on respiratory isolation to rule out tuberculosis. Patient does not have any significant sputum production. Case discussed with ID in detail. Quantify on test is negative. AFBx 3 is negative. Isolation discontinued. procalcitonin is negative.Legionella is negative. Patient is afebrile and nontoxic. Started on Augmentin and Zithromax. echocardiogram showed ejection fraction of 29%. Patient has no significant cardiac history. Started on Coreg, Norvasc, lisinopril, Aldactone. case discussed with cardiology in detail. Plan for cardiac cath tomorrow. Nothing by mouth past midnight. Nursing staff informed. Patient agreed for cardiac cath. Diabetes; continue regular insulin sliding scale. Upon discharge the patient will be referred to [facility] clinic.
[2018-01-21] MEDS: Insulin Reg-LOW-Coverage SC SCH ×3 (16:17→22:00)
--- NOTE | 2018-01-21 21:07 | CON ---
DATE: 01/21/2018 HISTORY OF PRESENT ILLNESS: This is a 57-year-old man admitted on 01/16 with shortness of breath, history of hypertension and diabetes, found to have severe LV dysfunction on an echocardiogram. His shortness of breath is relatively is recent. There was no chest pain, orthopnea, PND, syncope, presyncope, lightheadedness, dizziness, vertigo, palpitations, edema, claudication. There was no fever, chills, cough, sputum production, hemoptysis. There was no abdominal pain, nausea, vomiting, diarrhea, constipation or melena. PAST MEDICAL HISTORY: Notable for hypertension and diabetes. He is not known to have heart problems. There is no history of rheumatic fever, myocardial infarction, angina, congestive heart failure, arrhythmia, stroke, TIA or gout. MEDICATIONS: At the time of admission included glyburide and lisinopril, possibly metformin also. ALLERGIES: THERE ARE NO MEDICATION ALLERGIES REPORTED. SOCIAL HISTORY: He smokes cigarettes. He does not drink alcohol. He is a security investigator. He is ambulatory. FAMILY HISTORY: Noncontributory. REVIEW OF SYSTEMS: A 10-point review of systems is otherwise unremarkable except as noted above. PHYSICAL EXAMINATION: GENERAL: He is a well-developed male in no acute distress. Sitting on his bed in telemetry. VITAL SIGNS: Unremarkable. He is in sinus rhythm at 90 beats per minute. He is afebrile. Blood pressure 139/92, respirations 18-20, O2 sat 99%-100%. HEENT: Reveals no neck vein distention, thyromegaly or carotid bruits. Mucous membranes moist. Conjunctivae pink. NECK: Supple. LUNGS: Lung fam clear. HEART: Revealed normal first and second heart sounds. Soft systolic murmur along the left sternal border. ABDOMEN: Soft. Bowel sounds are present. No mass, organomegaly, tenderness, rebound or guarding. No CVA tenderness. No palpable abdominal aortic aneurysm. EXTREMITIES: Revealed no cyanosis, clubbing or edema. NEUROLOGIC: Awake, alert, and oriented. PSYCHIATRIC: Normal as to mood and affect. LABORATORY AND IMAGING DATA: An EKG demonstrates sinus tachycardia, rightward axis, poor R-wave progression, LVH, PVC, ST-T wave changes. A CT scan of the chest demonstrates no evidence of pulmonary embolism, nonspecific right upper lobe infiltrate and small lingular infiltrate, etc. An echocardiogram revealed severe LV dysfunction, mild aortic insufficiency, [id number] mitral regurgitation and [id number] pulmonary hypertension. White count normal, hemoglobin 12.6, hematocrit 36.5, platelet count normal. PT, INR, PTT normal. Electrolytes, BUN, creatinine, blood sugar unremarkable. LFTs unremarkable. Troponins were negative. BNP 1450. Procalcitonin 0.06. Magnesium normal. Urinalysis is noted. Toxic screen was negative. Serologies are noted. IMPRESSION: Trever Contreras is a 57-year-old man who presented with shortness of breath, was found to have severe left ventricular dysfunction on echo consistent with cardiomyopathy. There is no history of myocardial infarction or coronary artery disease; however, he is diabetic and symptoms may not have been apparent. PLAN: At this time, he is getting spironolactone and Coreg 3.125 b.i.d. He is getting amlodipine, Protonix, lisinopril, Lovenox, azithromycin and Augmentin. He should be considered for cardiac catheterization to define his coronary anatomy and LV function and right heart pressures. I will discuss this with you. We will make arrangements for this if patient is agreeable. I will discuss the case further with you. Niall Osuna MD MTDD
--- NOTE | 2018-01-21 23:47 | PN ---
DATE: 01/21/2018 SUBJECTIVE: The patient is in bed, in no acute distress, nontoxic. PHYSICAL EXAMINATION: VITAL SIGNS: On exam, temperature is 98, blood pressure is 119/72, respiratory rate of 18, heart rate of 89. HEENT: Unremarkable. NECK: Supple. LUNGS: Have decreased breath sounds. HEART: Normal S1, S2. ABDOMEN: Soft, nontender. LABORATORY EXAMINATION: Reveals a white count of 6.1, hemoglobin of 12, platelets of 235. BUN of 15, creatinine of 1.1, procalcitonin 0.06. Urinalysis is noted. ASSESSMENT AND PLAN: This is a 57-year-old with right upper lobe pneumonia with acute congestive heart failure and hypertension, diabetes; day #5, currently on Augmentin and Zithromax, would complete 5 to 7 days p.o. Odell Slater MD
[2018-01-22] MEDS: Pantoprazole 40 mg EC Tab PO SCH (06:05)
[2018-01-22 07:12] LABS: BASO # 0.01 K/mm3 (0.0-2.0); BASO % 0.1 % (0.0-3.0); EOS # 0.2 (0.0-0.7); EOS % 2.7 % (1.5-5.0); GRAN # 3.49 (1.4-6.5); GRAN % 44.2 % (50.0-68.0); HEMOGLOBIN 12.3 g/dL (14.0-18.0); LYMPH # 3.5 (1.2-3.4); LYMPH % 44.6 % (22.0-35.0); MEAN CELL VOLUME 73.3 fl (80.0-105.0); MEAN CORPUSCULAR HEMOGLOBIN 24.7 pg (25.0-35.0); MEAN CORPUSCULAR HGB CONC 33.7 g/dl (31.0-37.0); MEAN PLATELET VOLUME 10.4 fl (7.0-11.0); MONO # 0.7 (0.1-0.6); MONO % 8.4 % (1.0-6.0); RBC 4.98 10^6/uL (3.5-6.1); RED CELL DISTRIBUTION WIDTH 14.2 % (11.5-14.5); WHITE BLOOD COUNT 7.9 10^3/ul (4.5-11.0)
[2018-01-22 07:34] LABS: ALB/GLOB RATIO 1.3 (1.1-1.8); ALBUMIN 4.1 g/dL (3.0-4.8); ALT/SGPT 24 U/L (7-56); AST/SGOT 19 U/L (17-59); BLOOD UREA NITROGEN 13 mg/dL (7-21); CALCIUM 9.2 mg/dL (8.4-10.5); GFR AFRICAN-AMERICAN > 60; GFR NON-AFRICAN AMERICAN > 60
[2018-01-22] MEDS ORDERED: Lidocaine 2% Inj (20ml) ONE (07:45)
[2018-01-22] MEDS ORDERED: Midazolam 2 MG/2 ML VIAL ONE ×3 (07:45→09:44)
[2018-01-22] MEDS ORDERED: Iodixanol 320 MG/ML 200 ML BOTTLE IV ONE (07:46)
[2018-01-22] MEDS ORDERED: Eptifibatide 20 mg/10mL Inj IVP ONE (08:59)
[2018-01-22] MEDS ORDERED: Iodixanol 320 MG/ML 100 ML BOTTLE IV ONE ×2 (09:48→10:07)
[2018-01-22] MEDS ORDERED: Sodium Chloride 0.9% 1,000 ML IV SCH (10:30)
--- NOTE | 2018-01-22 10:55 | CP.PCM.PN ---
<Nicky Aguilar - Last Filed: 01/22/18 10:53> Subjective - Date & Time of Evaluation Date of Evaluation: 01/22/18 Time of Evaluation: 07:20 - Subjective Subjective: IM progress note for Hospitalist Service Pt S & E at chairside at 0730 Pt w/o complaints, nothing to eat after MN for cardiac cath today. Denies CP, SOB, N & V, palpitations, other complaints. Objective - Vital Signs/Intake and Output Vital Signs (last 24 hours): Temp Pulse Resp BP Pulse Ox 98.4 F 89 20 116/71 99 01/22/18 07:00 01/22/18 07:00 01/22/18 07:00 01/22/18 07:00 01/22/18 07:00 Intake and Output: 01/22/18 01/22/18 06:59 18:59 Intake Total 780 Balance 780 - Medications Medications: Current Medications Acetaminophen (Tylenol 325mg Tab) 650 mg PO Q4H PRN PRN Reason: Pain, Mild (1-3) Alprazolam (Xanax) 0.25 mg PO BID PRN PRN Reason: Anxiety Stop: 01/29/18 10:21 Aspirin (Ecotrin) 81 mg PO DAILY [facility] Atorvastatin Calcium (Lipitor) 40 mg PO DIN [facility] Azithromycin (Zithromax) 500 mg PO DAILY [facility] PRN Reason: Protocol Stop: 01/23/18 10:01 Last Admin: 01/21/18 10:58 Dose: 500 mg Carvedilol (Coreg) 6.25 mg PO BID [facility] Clopidogrel Bisulfate (Plavix) 75 mg PO DAILY [facility] Docusate Sodium (Colace) 100 mg PO BID [facility] Guaifenesin (Robitussin) 100 mg PO Q4H PRN PRN Reason: Cough Sodium Chloride (Sodium Chloride 0.9%) 1,000 mls @ 60 mls/hr IV .[id number] [facility] Stop: 01/22/18 16:31 Insulin Human Regular (Humulin R Low) 0 units SC ACHS [facility] PRN Reason: Protocol Last Admin: 01/21/18 22:00 Dose: Not Given Lisinopril (Zestril) 40 mg PO DAILY [facility] Last Admin: 01/21/18 10:59 Dose: 40 mg Pantoprazole Sodium (Protonix Ec Tab) 40 mg PO 0600 [facility] Last Admin: 01/22/18 06:05 Dose: 40 mg Spironolactone (Aldactone) 25 mg PO BID [facility] Last Admin: 01/21/18 17:47 Dose: 25 mg - Labs Labs: 01/22/18 06:30 01/22/18 06:30 PT 11.6 SECONDS (9.4-12.5) 01/16/18 11:15 INR 1.01 (0.93-1.08) 01/16/18 11:15 APTT 27.0 Seconds (25.1-36.5) 01/16/18 11:15 - Constitutional Appears: Non-toxic, No Acute Distress - Head Exam Head Exam: ATRAUMATIC, NORMAL INSPECTION, NORMOCEPHALIC - Eye Exam Eye Exam: EOMI, Normal appearance - ENT Exam ENT Exam: Mucous Membranes Moist, Normal Exam - Neck Exam Neck Exam: Full ROM, Normal Inspection - Respiratory Exam Respiratory Exam: Clear to Ausculation Bilateral, NORMAL BREATHING PATTERN - Cardiovascular Exam Cardiovascular Exam: REGULAR RHYTHM, +S1, +S2 - GI/Abdominal Exam GI & Abdominal Exam: Soft, Normal Bowel Sounds. absent: Tenderness - Extremities Exam Extremities Exam: Normal Inspection. absent: Pedal Edema - Back Exam Back Exam: NORMAL INSPECTION. absent: CVA tenderness (L), CVA tenderness (R) - Neurological Exam Neurological Exam: Alert, Awake, CN II-XII Intact, Oriented x3 - Psychiatric Exam Psychiatric exam: Normal Affect, Normal Mood - Skin Skin Exam: Dry, Intact, Normal Color, Warm Assessment and Plan - Assessment and Plan (Free Text) Assessment: 57M w/PMH sig for HTN & DM admitted for SOB, palpitations and diaphoresis likely secondary to CAP, TB ruled out- AFBs and Quantiferon negative. Now undergoing workup for newly discovered systolic dysfunction with reduced EF (30% ),for cardiac cath today Plan: Cardiac evaluation in setting of SOB, diaphoresis and palpitations TB unlikely, prelim AFBs x3 neg, Quantiferon negative Discontinue TB precautions Blood, urine culture negative x72 hrs Procal neg Legionella neg CTA neg for PE, has RUL infiltrate and lingular infiltrate BNP elevated, Echo w/severe LV dysfxn with LV hypokinesis and EF 30% Cardiac cath today with cardiology Cont coreg Cont aldactone ID following FU HIV Cont PO Augmentin & Zithromax (Day #6/7) ASA Plavix IVF monitor Cr DM ISS low dose Acchuchecks ACHS CCHO diet HTN Norvasc Lisinopril Dispo: Tele s/p cardiac cath, completing abx course, will monitor overnight due to contrast load in cardiac cath as per cardiology FEN: HHD, CCHO/HHD after cardiac cath Access: Peripheral IV Consults: ID, Cardio Ppx: Protonix for GI, SCDs for DVT DW attending Lauren, PGY-1 <Geovani Bai - Last Filed: 01/22/18 16:55> Objective - Vital Signs/Intake and Output Vital Signs (last 24 hours): Temp Pulse Resp BP Pulse Ox 98.2 F 90 18 154/91 H 99 01/22/18 10:55 01/22/18 15:40 01/22/18 15:40 01/22/18 15:40 01/22/18 07:00 Intake and Output: 01/22/18 01/22/18 06:59 18:59 Intake Total 780 180 Output Total 400 Balance 780 -220 - Medications Medications: Current Medications Acetaminophen (Tylenol 325mg Tab) 650 mg PO Q4H PRN PRN Reason: Pain, Mild (1-3) Alprazolam (Xanax) 0.25 mg PO BID PRN PRN Reason: Anxiety Stop: 01/29/18 10:21 Aspirin (Ecotrin) 81 mg PO DAILY [facility] Atorvastatin Calcium (Lipitor) 40 mg PO DIN [facility] Azithromycin (Zithromax) 500 mg PO DAILY [facility] PRN Reason: Protocol Stop: 01/23/18 10:01 Last Admin: 01/22/18 11:54 Dose: Not Given Carvedilol (Coreg) 6.25 mg PO BID [facility] Clopidogrel Bisulfate (Plavix) 75 mg PO DAILY [facility] Docusate Sodium (Colace) 100 mg PO BID [facility] Guaifenesin (Robitussin) 100 mg PO Q4H PRN PRN Reason: Cough Insulin Human Regular (Humulin R Low) 0 units SC ACHS [facility] PRN Reason: Protocol Last Admin: 01/22/18 13:18 Dose: Not Given Lisinopril (Zestril) 40 mg PO DAILY [facility] Last Admin: 01/22/18 11:54 Dose: Not Given Pantoprazole Sodium (Protonix Ec Tab) 40 mg PO 0600 [facility] Last Admin: 01/22/18 06:05 Dose: 40 mg Spironolactone (Aldactone) 25 mg PO BID [facility] Last Admin: 01/22/18 11:53 Dose: Not Given - Labs Labs: 01/22/18 06:30 01/22/18 06:30 PT 11.6 SECONDS (9.4-12.5) 01/16/18 11:15 INR 1.01 (0.93-1.08) 01/16/18 11:15 APTT 27.0 Seconds (25.1-36.5) 01/16/18 11:15 Attending/Attestation - Attestation I have personally seen and examined this patient.: Yes I have fully participated in the care of the patient.: Yes I have reviewed all pertinent clinical information, including history, physical exam and plan: Yes Notes (Text): 01/22/18 16:53 attending note; Patient seen and examined with resident. Patient is a 57-year-old male with a past medical history of hypertension, diabetes is admitted with shortness of breath. CT chest showed right upper lobe infiltrate. Quantify on test is negative. AFBx 3 is negative. Isolation discontinued. procalcitonin is negative.Legionella is negative. Patient is afebrile and nontoxic. on Augmentin and Zithromax. echocardiogram showed ejection fraction of 29%. Patient has no significant cardiac history. Started on Coreg, Norvasc, lisinopril, Aldactone. status post cardiac cath. Case discussed with Dr. Agosto in detail. Patient had 3 stents in RCA. Monitor creatinine. Continue IV fluid60 mL per hour. Diabetes; continue regular insulin sliding scale. Possible discharge home tomorrow if clinically stable. Patient needs Close cardiology follow-up as outpatient. Upon discharge the patient will be referred to [facility] [place].
[2018-01-22] MEDS: Amoxicillin-Clav 875-125 mg Tab PO SCH (11:53)
[2018-01-22] MEDS: Insulin Reg-LOW-Coverage SC SCH ×5 (11:53→21:26)
--- NOTE | 2018-01-22 13:46 | PN ---
DATE: 01/22/2018 SUBJECTIVE: The patient is in bed, in no acute distress. PHYSICAL EXAMINATION: VITAL SIGNS: Temperature of 98, blood pressure is 116/70, respiratory rate of 18, heart rate of 89. HEENT: Unremarkable. NECK: Supple. LUNGS: Have decreased breath sounds. HEART: Normal S1 and S2. ABDOMEN: Soft. LABORATORY DATA: Reveals a white count of 7.9, hemoglobin of 12, platelets of 238. Chemistries reveals a BUN of 13, creatinine of 1.1. Urinalysis is noted. The patient's HIV is negative. Microbiology is no acid-fast seen. Review of orders reveals the patient is on p.o. Augmentin and p.o. Zithromax. ASSESSMENT AND PLAN: This is a 57-year-old male who was seen earlier this morning in 574, bed 2, who is ready for his cardiac catheterization today and was admitted with right upper lobe pneumonia with acute congestive heart failure, hypertension and diabetes, day #6 of Zithromax and Augmentin, would complete in 5 to 7 days and follow up radiologically to resolution with PMD and pulmonary. I discussed with PMD this morning. Odell Salter MD
--- NOTE | 2018-01-22 16:52 | CARDCATH ---
PROCEDURE DATE: 01/22/2018 PROCEDURES: 1. Right and left heart catheterization. 2. Selective left and right coronary angiography. 3. Right femoral arteriography. 4. Percutaneous coronary intervention of right coronary artery with drug-eluting stents. 5. Angio-Seal deployment. HISTORY: This is a 57-year-old man who was recently admitted with exertional dyspnea. He was noted to have LV dysfunction on echocardiography and catheterization was advised. INDICATIONS: As above. FINDINGS: The right heart pressures were as follows. The RA pressure was 5. The RV pressure was 32/7 with a PA pressure of 32/16. The pulmonary capillary wedge pressure was 12. The cardiac output was 4.9 liters per minute with a cardiac index of 3.1 liters per minute per meter square. CORONARY ANATOMY: 1. The left mainstem was normal. 2. Left anterior descending artery had mild plaque in its mid portion with evidence of extrinsic calcification noted in the mid vessel. 3. Left circumflex artery had mild diffuse irregularities. 4. The right coronary artery was dominant and had a long complex subtotal occlusion in the mid portion extending into the distal segment. There was LEXY grade 2 flow noted in the distal vessel. LEFT VENTRICULOGRAPHY: A hand injection was performed in the left ventricle revealing an overall ejection fraction 35%. There was no aortic valve gradient noted on catheter pullback. Mitral regurgitation was not assessed. CORONARY INTERVENTION: Attempted PCI of the right coronary artery was then performed. This was a complex and long procedure involving multiple wire changes and catheter changes. The lesion in the RCA was successfully crossed with a [place] wire. Following this, attempts to advance with 2.0 x 15 mm balloon were unsuccessful as the balloon could not cross the early distal segment of the vessel. Subsequently, a 1.5 mm balloon was then advanced again met resistance in the early distal portion of the vessel. A Choice PT wire was advanced into the distal vessel and used as a svetlana wire. Following this, the 1.5 mm balloon was advanced into the distal segment and multiple inflations performed in mid and distal segment from 6 to 8 atmospheres for 20-25 seconds each. The balloon was then removed and a 2.5 mm balloon advanced into the distal segment and multiple inflations performed in the distal and mid portion as well. The balloon was inflated at 8 atmospheres for a 20-25 seconds at each segment. Intracoronary nitroglycerin was infused. There appeared to be some improvement in flow in the distal vessels; however, the caliber appeared fairly small. Subsequently, a 2.5 x 22 mm Resolute drug-eluting stent was advanced into the distal RCA and inflated to 12 atmospheres. Following this, there was 0% residual stenosis at that segment. Subsequently, a 2.75 x 26 mm stent was advanced into the mid portion of the vessel and inflated to 14 atmospheres. The balloon was then advanced into the overlap of the two stents and this was inflated to 16 atmospheres for 30 seconds. There was 0% residual stenosis at both sides; however, there appeared to be evidence of a distal dissection extending into the posterolateral branch. That vessel was re-wired and a 2.25 mm balloon advanced into the vessel and low pressure inflation performed; however, the dissection plane appeared to persist, although they did not appeared to be flow limiting. Given the appearance of the lesion, the decision was made to advance a 2.25 x 8 mm stent into the segment. The wire was advanced into the proximal PDA as this was a large of the two branches. The stent was inflated to 12 atmospheres for 45 seconds. The balloon was then deflated and then pulled back and the segment overlap between the two distal stents was inflated to 14 atmospheres. The balloon was then removed; however, there appeared to be evidence of loss of flow into the PDA as well as sluggish flow in the PLV. Following this, wire access was established in both branches and kissing balloon inflations were then performed with a 2.25 x 12 mm balloon in the PDA and a 2.25 x 12 mm balloon in the PLV. These inflations were repeated twice to 6 atmospheres in each balloon for 30 seconds. Upon removal of the balloon, there appeared to be good flow in both vessels with no evidence of residual dissection and LEXY grade 3 flow is present. RIGHT FEMORAL ARTERIOGRAPHY: Right femoral arteriogram revealed no evidence of significant disease and appropriate level of arterial puncture. The puncture site was then closed with deployment of an Angio-Seal device. The venous sheath was removed and manual pressure applied until hemostasis was achieved. CONCLUSIONS: 1. Severe RCA disease. 2. Moderately severe LV systolic dysfunction. 3. Successful PCI of RCA as described above. RECOMMENDATIONS: Aspirin and Plavix therapy should be continued for at least one year. Beta-evie, statin and KENDELL inhibitor therapy as advised as well. Risk factor control is recommended. Timbo Archibald MD [facility] # [id number]
--- NOTE | 2018-01-22 18:51 | CARD ---
APPROVED REPORT EKG Measurement Heart [id number] <Conclusion> Normal sinus rhythm Possible Left atrial enlargement Rightward axis T wave abnormality, consider inferior ischemia Abnormal ECG
[2018-01-22 23:59] VITALS: RESP 20; O2SAT 100
[2018-01-23] MEDS: Pantoprazole 40 mg EC Tab PO SCH (05:17)
[2018-01-23 05:58] VITALS: TEMP 98
[2018-01-23 07:15] LABS: BASO # 0.02 K/mm3 (0.0-2.0); BASO % 0.3 % (0.0-3.0); EOS # 0.2 (0.0-0.7); EOS % 3.1 % (1.5-5.0); GRAN # 3.67 (1.4-6.5); GRAN % 51.4 % (50.0-68.0); HEMOGLOBIN 12.2 g/dL (14.0-18.0); LYMPH # 2.6 (1.2-3.4); LYMPH % 36.7 % (22.0-35.0); MEAN CELL VOLUME 73.8 fl (80.0-105.0); MEAN CORPUSCULAR HEMOGLOBIN 24.8 pg (25.0-35.0); MEAN CORPUSCULAR HGB CONC 33.6 g/dl (31.0-37.0); MEAN PLATELET VOLUME 10.3 fl (7.0-11.0); MONO # 0.6 (0.1-0.6); MONO % 8.5 % (1.0-6.0); RBC 4.92 10^6/uL (3.5-6.1); RED CELL DISTRIBUTION WIDTH 14.1 % (11.5-14.5); WHITE BLOOD COUNT 7.1 10^3/ul (4.5-11.0)
[2018-01-23 07:44] LABS: BLOOD UREA NITROGEN 8 mg/dL (7-21); CALCIUM 8.8 mg/dL (8.4-10.5); GFR AFRICAN-AMERICAN > 60; GFR NON-AFRICAN AMERICAN > 60
[2018-01-23] MEDS: Insulin Reg-LOW-Coverage SC SCH ×2 (08:49→12:12)
[2018-01-23 09:33] VITALS: BP 149/78; PULSE 96
--- NOTE | 2018-01-23 09:43 | CP.PCM.DIS ---
<Mike Real - Last Filed: 01/23/18 09:40> Provider - Provider Date of Admission: 01/16/18 13:50 Attending physician: Geovani Bai MD Consults: Cardio: Enrrique Time Spent in preparation of Discharge (in minutes): 45 Diagnosis - Discharge Diagnosis (1) CAD (coronary artery disease) Status: Chronic (2) Stented coronary artery Status: Acute (3) Diabetes mellitus Status: Chronic (4) HTN (hypertension) Status: Chronic Hospital Course - Lab Results Lab Results: Micro Results 01/16/18 14:40 Blood Blood Culture - Final NO GROWTH AFTER 5 DAYS 01/16/18 14:40 Blood Gram Stain - Final TEST NOT PERFORMED 01/16/18 15:00 Blood Blood Culture - Final NO GROWTH AFTER 5 DAYS 01/16/18 15:00 Blood Gram Stain - Final TEST NOT PERFORMED 01/19/18 16:22 Other: Please Indicate Mycobacterial Culture - Preliminary 01/19/18 00:30 Other: Please Indicate Mycobacterial Culture - Preliminary 01/18/18 11:05 Other: Please Indicate Mycobacterial Culture - Preliminary 01/16/18 14:40 Urine,Clean Catch Urine Culture - Final No Growth (<1,000 CFU/ML) Most Recent Lab Values WBC 7.1 10^3/ul (4.5-11.0) 01/23/18 06:30 RBC 4.92 10^6/uL (3.5-6.1) 01/23/18 06:30 Hgb 12.2 g/dL (14.0-18.0) L 01/23/18 06:30 Hct 36.3 % (42.0-52.0) L 01/23/18 06:30 MCV 73.8 fl (80.0-105.0) L 01/23/18 06:30 MCH 24.8 pg (25.0-35.0) L 01/23/18 06:30 MCHC 33.6 g/dl (31.0-37.0) 01/23/18 06:30 RDW 14.1 % (11.5-14.5) 01/23/18 06:30 Plt Count 243 10^3/uL (120.0-450.0) 01/23/18 06:30 MPV 10.3 fl (7.0-11.0) 01/23/18 06:30 Gran % 51.4 % (50.0-68.0) 01/23/18 06:30 Lymph % (Auto) 36.7 % (22.0-35.0) H 01/23/18 06:30 Lawrence % (Auto) 8.5 % (1.0-6.0) H 01/23/18 06:30 Eos % (Auto) 3.1 % (1.5-5.0) 01/23/18 06:30 Baso % (Auto) 0.3 % (0.0-3.0) 01/23/18 06:30 Gran # 3.67 (1.4-6.5) 01/23/18 06:30 Lymph # (Auto) 2.6 (1.2-3.4) 01/23/18 06:30 Lawrence # (Auto) 0.6 (0.1-0.6) 01/23/18 06:30 Eos # (Auto) 0.2 (0.0-0.7) 01/23/18 06:30 Baso # (Auto) 0.02 K/mm3 (0.0-2.0) 01/23/18 06:30 PT 11.6 SECONDS (9.4-12.5) 01/16/18 11:15 INR 1.01 (0.93-1.08) 01/16/18 11:15 APTT 27.0 Seconds (25.1-36.5) 01/16/18 11:15 Sodium 144 mmol/L (132-148) 01/23/18 06:30 Potassium 4.4 mmol/L (3.6-5.0) 01/23/18 06:30 Chloride 107 mmol/L (98-107) 01/23/18 06:30 Carbon Dioxide 24 mmol/L (21-33) 01/23/18 06:30 Anion Gap 17 (10-20) 01/23/18 06:30 BUN 8 mg/dL (7-21) 01/23/18 06:30 Creatinine 1.1 mg/dl (0.8-1.5) 01/23/18 06:30 Est GFR ( Amer) > 60 01/23/18 06:30 Est GFR (Non-Af Amer) > 60 01/23/18 06:30 POC Glucose (mg/dL) 170 mg/dL (65-110) H 01/23/18 07:37 Random Glucose 236 mg/dL (70-110) H 01/23/18 06:30 Calcium 8.8 mg/dL (8.4-10.5) 01/23/18 06:30 Phosphorus 3.8 mg/dL (2.5-4.5) 01/22/18 06:30 Magnesium 2.1 mg/dL (1.7-2.2) 01/22/18 06:30 Total Bilirubin 0.9 mg/dL (0.2-1.3) 01/22/18 06:30 AST 19 U/L (17-59) 01/22/18 06:30 ALT 24 U/L (7-56) 01/22/18 06:30 Alkaline Phosphatase 73 U/L (38-126) 01/22/18 06:30 Lactate Dehydrogenase 458 U/L (333-699) 01/16/18 11:15 Total Creatine Kinase 71 U/L (35-230) 01/19/18 07:30 Troponin I 0.02 ng/mL D 01/19/18 07:30 NT-Pro-B Natriuret Pep 1450 pg/mL (0-450) H 01/16/18 11:15 Total Protein 7.3 g/dL (5.8-8.3) 01/22/18 06:30 Albumin 4.1 g/dL (3.0-4.8) 01/22/18 06:30 Globulin 3.2 gm/dL 01/22/18 06:30 Albumin/Globulin Ratio 1.3 (1.1-1.8) 01/22/18 06:30 Procalcitonin 0.06 NG/ML (0.19-0.49) L 01/17/18 07:00 Urine Color Light yellow (YELLOW) 01/16/18 14:40 Urine Appearance Clear (CLEAR) 01/16/18 14:40 Urine pH 6.5 (4.7-8.0) 01/16/18 14:40 Ur Specific [place] <= 1.005 (1.005-1.035) 01/16/18 14:40 Urine Protein Trace mg/dL (<30 mg/dL) H 01/16/18 14:40 Urine Glucose (UA) Negative mg/dL (NEGATIVE) 01/16/18 14:40 Urine Ketones Negative mg/dL (NEGATIVE) 01/16/18 14:40 Urine Blood Negative (NEGATIVE) 01/16/18 14:40 Urine Nitrate Negative (NEGATIVE) 01/16/18 14:40 Urine Bilirubin Negative (NEGATIVE) 01/16/18 14:40 Urine Urobilinogen 0.2 E.U./dL (<1 E.U./dL) 01/16/18 14:40 Ur Leukocyte Esterase Negative Karen/uL (NEGATIVE) 01/16/18 14:40 Urine RBC Negative /hpf (0-2) 01/16/18 14:40 Urine WBC 1 - 3 /hpf (0-6) 01/16/18 14:40 Ur Epithelial Cells 1 - 3 /hpf (0-5) 01/16/18 14:40 Urine Bacteria Few (NEG) 01/16/18 14:40 Urine Opiates Screen Negative (NEGATIVE) 01/16/18 14:40 Urine Methadone Screen Negative (NEGATIVE) 01/16/18 14:40 Ur Barbiturates Screen Negative (NEGATIVE) 01/16/18 14:40 Ur Phencyclidine Scrn Negative (NEGATIVE) 01/16/18 14:40 Ur Amphetamines Screen Negative (NEGATIVE) 01/16/18 14:40 U Benzodiazepines Scrn Negative (NEGATIVE) 01/16/18 14:40 U Oth Cocaine Metabols Negative (NEGATIVE) 01/16/18 14:40 U Cannabinoids Screen Negative (NEGATIVE) 01/16/18 14:40 HIV 1&2 Ag/Ab, 4th Gen Nonreactive (Nonreactive) 01/20/18 07:00 Ur L.pneumophila Ag Negative (NEGATIVE) 01/17/18 11:35 Pneumocystis Source Serum 01/16/18 14:40 S. pneumoniae Antigen Not detected 01/16/18 14:40 TB Test (QFT) Nil 0.38 IU/mL 01/17/18 14:15 TB Test Mitogen - Nil 6.68 IU/mL 01/17/18 14:15 TB Test TB - Nil <0.00 IU/mL 01/17/18 14:15 TB Test (QFT) Negative (Negative) 01/17/18 14:15 - Hospital Course Hospital Course: Patient is a 57yo male with history of hypertension and DM type 2 that presents c/o shortness of breath that started the morning of admission. He reported being woken from his sleep feeling diaphoretic, short of breath and having heart palpitations. In the ED, CTA was obtained which revealed no PE however nonspecific RUL infiltrate and small lingular infiltrate was noted. Patient was admitted for RUL infiltrate likely 2/2 CAP. ID was consulted. TB was ruled out. Patient was started IV antibiotics and eventually transitioned to PO antibiotics , which he completed during hospital course. Echo was ordered, which showed severe LV dysfunction with LV hypokinesis and LVEF of 30%. Cardiology was consulted. Patient underwent cardiac catherization which showed severe RCA disease, which required multiple REBEL. Cardiology recommended dual antiplatelet therapy for at least one year along with beta-evie, statin, and KENDELL inhibitor. Today, patient was seen and examined at bedside. No acute overnight events. Renal function was WNL after cardiac catherization. Patient was advised to follow up with [facility] and Dr. Archibald after discharge. Patient was given medications from [facility] and counselled on medication compliance. Patient acknowledged, agreed, and was discharged. Discharge Exam - Head Exam Head Exam: ATRAUMATIC, NORMAL INSPECTION, NORMOCEPHALIC - Eye Exam Eye Exam: Normal appearance - ENT Exam ENT Exam: Normal Exam - Neck Exam Neck exam: Normal Inspection - Respiratory Exam Respiratory Exam: Clear to PA & Lateral. absent: Rales, Rhonchi, Wheezes, Respiratory Distress - Cardiovascular Exam Cardiovascular Exam: RRR, +S1, +S2. absent: Diastolic murmur, Gallop, Rubs, Systolic Murmur - GI/Abdominal Exam GI & Abdominal Exam: Soft. absent: Distended, Guarding, Rebound, Tenderness - Extremities Exam Extremities exam: normal inspection - Back Exam Back exam: NORMAL INSPECTION - Neurological Exam Neurological exam: Alert, CN II-XII Intact, Oriented x3 - Psychiatric Exam Psychiatric exam: Normal Affect, Normal Mood - Skin Skin Exam: Dry, Intact, Normal Color, Warm Discharge Plan - Discharge Medications Prescriptions: Aspirin [Ecotrin] 81 mg PO DAILY #30 tabec Atorvastatin [Lipitor] 40 mg PO DIN #30 tab Carvedilol [Coreg] 6.25 mg PO BID #60 tab Clopidogrel [Plavix] 75 mg PO DAILY #30 tab Glyburide/Metformin HCl [Glyburide-Metformin 5-500 mg] 1 each PO BID #60 tablet Lisinopril [Zestril] 40 mg PO DAILY #30 tab Spironolactone [Aldactone] 25 mg PO BID #60 tab - Follow Up Plan Condition: FAIR Disposition: HOME/ ROUTINE Instructions: Cardiac Catheterization, Coronary Stenting, Heart Healthy Diet, Cardiac Catheterization (DC), Coronary Stenting (DC), Aspirin, Clopidogrel, Going Home on Blood Thinners Additional Instructions: Please call your primary care doctor for a follow up appointment in the next week or 2. You are being discharged on blood thinners, please monitor for bowel movements and urine for any potential bleeding or red/pink discoloration- if this happens, please immediately contact your primary care provider. Please take all prescriptions as written. If you have chest pain, become short of breath, excessively sweaty, or have palpitations, please return to the hospital immediately. Referrals: Timbo Archibald MD [Staff Provider] - [facility] at [facility] [Outside] <Geovani Bai - Last Filed: 01/23/18 12:57> Provider - Provider Date of Admission: 01/16/18 13:50 Attending physician: Geovani Bai MD Hospital Course - Lab Results Lab Results: Micro Results 01/16/18 14:40 Blood Blood Culture - Final NO GROWTH AFTER 5 DAYS 01/16/18 14:40 Blood Gram Stain - Final TEST NOT PERFORMED 01/16/18 15:00 Blood Blood Culture - Final NO GROWTH AFTER 5 DAYS 01/16/18 15:00 Blood Gram Stain - Final TEST NOT PERFORMED 01/19/18 16:22 Other: Please Indicate Mycobacterial Culture - Preliminary 01/19/18 00:30 Other: Please Indicate Mycobacterial Culture - Preliminary 01/18/18 11:05 Other: Please Indicate Mycobacterial Culture - Preliminary 01/16/18 14:40 Urine,Clean Catch Urine Culture - Final No Growth (<1,000 CFU/ML) Most Recent Lab Values WBC 7.1 10^3/ul (4.5-11.0) 01/23/18 06:30 RBC 4.92 10^6/uL (3.5-6.1) 01/23/18 06:30 Hgb 12.2 g/dL (14.0-18.0) L 01/23/18 06:30 Hct 36.3 % (42.0-52.0) L 01/23/18 06:30 MCV 73.8 fl (80.0-105.0) L 01/23/18 06:30 MCH 24.8 pg (25.0-35.0) L 01/23/18 06:30 MCHC 33.6 g/dl (31.0-37.0) 01/23/18 06:30 RDW 14.1 % (11.5-14.5) 01/23/18 06:30 Plt Count 243 10^3/uL (120.0-450.0) 01/23/18 06:30 MPV 10.3 fl (7.0-11.0) 01/23/18 06:30 Gran % 51.4 % (50.0-68.0) 01/23/18 06:30 Lymph % (Auto) 36.7 % (22.0-35.0) H 01/23/18 06:30 Lawrence % (Auto) 8.5 % (1.0-6.0) H 01/23/18 06:30 Eos % (Auto) 3.1 % (1.5-5.0) 01/23/18 06:30 Baso % (Auto) 0.3 % (0.0-3.0) 01/23/18 06:30 Gran # 3.67 (1.4-6.5) 01/23/18 06:30 Lymph # (Auto) 2.6 (1.2-3.4) 01/23/18 06:30 Lawrence # (Auto) 0.6 (0.1-0.6) 01/23/18 06:30 Eos # (Auto) 0.2 (0.0-0.7) 01/23/18 06:30 Baso # (Auto) 0.02 K/mm3 (0.0-2.0) 01/23/18 06:30 PT 11.6 SECONDS (9.4-12.5) 01/16/18 11:15 INR 1.01 (0.93-1.08) 01/16/18 11:15 APTT 27.0 Seconds (25.1-36.5) 01/16/18 11:15 Sodium 144 mmol/L (132-148) 01/23/18 06:30 Potassium 4.4 mmol/L (3.6-5.0) 05/05/18 06:30 Chloride 107 mmol/L (98-107) 01/23/18 06:30 Carbon Dioxide 24 mmol/L (21-33) 01/23/18 06:30 Anion Gap 17 (10-20) 01/23/18 06:30 BUN 8 mg/dL (7-21) 01/23/18 06:30 Creatinine 1.1 mg/dl (0.8-1.5) 01/23/18 06:30 Est GFR ( Amer) > 60 01/23/18 06:30 Est GFR (Non-Af Amer) > 60 01/23/18 06:30 POC Glucose (mg/dL) 170 mg/dL (65-110) H 01/23/18 07:37 Random Glucose 236 mg/dL (70-110) H 01/23/18 06:30 Calcium 8.8 mg/dL (8.4-10.5) 01/23/18 06:30 Phosphorus 3.8 mg/dL (2.5-4.5) 01/22/18 06:30 Magnesium 2.1 mg/dL (1.7-2.2) 01/22/18 06:30 Total Bilirubin 0.9 mg/dL (0.2-1.3) 01/22/18 06:30 AST 19 U/L (17-59) 01/22/18 06:30 ALT 24 U/L (7-56) 01/22/18 06:30 Alkaline Phosphatase 73 U/L (38-126) 01/22/18 06:30 Lactate Dehydrogenase 458 U/L (333-699) 01/16/18 11:15 Total Creatine Kinase 71 U/L (35-230) 01/19/18 07:30 Troponin I 0.02 ng/mL D 01/19/18 07:30 NT-Pro-B Natriuret Pep 1450 pg/mL (0-450) H 01/16/18 11:15 Total Protein 7.3 g/dL (5.8-8.3) 01/22/18 06:30 Albumin 4.1 g/dL (3.0-4.8) 01/22/18 06:30 Globulin 3.2 gm/dL 01/22/18 06:30 Albumin/Globulin Ratio 1.3 (1.1-1.8) 01/22/18 06:30 Procalcitonin 0.06 NG/ML (0.19-0.49) L 01/17/18 07:00 Urine Color Light yellow (YELLOW) 01/16/18 14:40 Urine Appearance Clear (CLEAR) 01/16/18 14:40 Urine pH 6.5 (4.7-8.0) 01/16/18 14:40 Ur Specific [place] <= 1.005 (1.005-1.035) 01/16/18 14:40 Urine Protein Trace mg/dL (<30 mg/dL) H 01/16/18 14:40 Urine Glucose (UA) Negative mg/dL (NEGATIVE) 01/16/18 14:40 Urine Ketones Negative mg/dL (NEGATIVE) 01/16/18 14:40 Urine Blood Negative (NEGATIVE) 01/16/18 14:40 Urine Nitrate Negative (NEGATIVE) 01/16/18 14:40 Urine Bilirubin Negative (NEGATIVE) 01/16/18 14:40 Urine Urobilinogen 0.2 E.U./dL (<1 E.U./dL) 01/16/18 14:40 Ur Leukocyte Esterase Negative Karen/uL (NEGATIVE) 01/16/18 14:40 Urine RBC Negative /hpf (0-2) 01/16/18 14:40 Urine WBC 1 - 3 /hpf (0-6) 01/16/18 14:40 Ur Epithelial Cells 1 - 3 /hpf (0-5) 01/16/18 14:40 Urine Bacteria Few (NEG) 01/16/18 14:40 Urine Opiates Screen Negative (NEGATIVE) 01/16/18 14:40 Urine Methadone Screen Negative (NEGATIVE) 01/16/18 14:40 Ur Barbiturates Screen Negative (NEGATIVE) 01/16/18 14:40 Ur Phencyclidine Scrn Negative (NEGATIVE) 01/16/18 14:40 Ur Amphetamines Screen Negative (NEGATIVE) 01/16/18 14:40 U Benzodiazepines Scrn Negative (NEGATIVE) 01/16/18 14:40 U Oth Cocaine Metabols Negative (NEGATIVE) 01/16/18 14:40 U Cannabinoids Screen Negative (NEGATIVE) 01/16/18 14:40 HIV 1&2 Ag/Ab, 4th Gen Nonreactive (Nonreactive) 01/20/18 07:00 Ur L.pneumophila Ag Negative (NEGATIVE) 01/17/18 11:35 Pneumocystis Source Serum 01/16/18 14:40 S. pneumoniae Antigen Not detected 01/16/18 14:40 TB Test (QFT) Nil 0.38 IU/mL 01/17/18 14:15 TB Test Mitogen - Nil 6.68 IU/mL 01/17/18 14:15 TB Test TB - Nil <0.00 IU/mL 01/17/18 14:15 TB Test (QFT) Negative (Negative) 01/17/18 14:15 Attending/Attestation - Attestation I have personally seen and examined this patient.: Yes I have fully participated in the care of the patient.: Yes I have reviewed all pertinent clinical information, including history, physical exam and plan: Yes Notes (Text): 01/23/18 12:56 attending note; Patient seen and examined with resident. Patient is a 57-year-old male with a past medical history of hypertension, diabetes is admitted with shortness of breath. CT chest showed right upper lobe infiltrate. Quantify on test is negative. AFBx 3 is negative. Isolation discontinued. procalcitonin is negative.Legionella is negative. Patient is afebrile and nontoxic. treated with IV Rocephin and Zithromax. echocardiogram showed ejection fraction of 29%. Patient has no significant cardiac history. Started on Coreg, Norvasc, lisinopril, Aldactone. status post cardiac cath. Case discussed with Dr. Agosto in detail. Patient had stents in RCA. Creatinine is stable. Diabetes; continue regular insulin sliding scale. continue metformin/glyburide as outpatient. discharge home today. Patient needs Close cardiology follow-up as outpatient. Upon discharge the patient will be referred to [facility]. 01/23/18 12:57
--- NOTE | 2018-01-23 13:25 | PN ---
DATE: 01/23/2018 SUBJECTIVE: The patient is seen sitting in chair on telemetry. He feels significantly better. He states his dyspnea is improved. He denies any chest pain. CURRENT MEDICATIONS: Include Aldactone 25 mg b.i.d., carvedilol 6.25 mg b.i.d., Ecotrin once daily, Plavix 75 mg daily, Lipitor 40 mg daily, Protonix 40 mg daily and Zestril 40 mg daily as well as Zithromax. OBJECTIVE: GENERAL: He is a middle-aged man appears comfortable at rest. VITAL SIGNS: His blood pressure is 149/78 with pulse of 90, respirations are 16. He is afebrile. HEENT: No JVD. CHEST: Few scattered rhonchi noted. HEART: No pathologic murmurs or gallops noted. ABDOMEN: Soft, nontender and normoactive bowel sounds. EXTREMITIES: No edema. Femoral access site in the right groin appears clean and dry. LABORATORY DATA: Potassium 4.4, BUN and creatinine are 8 and 1.1, glucose is 236. Hemoglobin and hematocrit 12.2 and 36.3 with a white count 7.1, platelet count of 243,000. IMPRESSION: 1. Left ventricular dysfunction, unclear if this is due to underlying cardiomyopathy or secondary to ischemic cardiomyopathy. 2. Coronary artery disease, status post percutaneous coronary intervention of complex right coronary artery disease. 3. History of hypertension. 4. Diabetes mellitus. RECOMMENDATIONS: His current medications will be continued for now. Given his current blood pressure and resting relative tachycardia, his carvedilol dose will be increased further to 12.5 mg b.i.d. The need for uninterrupted dual antiplatelet therapy was discussed with him. From a cardiac standpoint, he appears stable for discharge home today. Outpatient followup will be arranged. The need for control of diabetes was discussed with him. Timbo Archibald MD
--- NOTE | 2018-01-23 15:08 | PN ---
DATE: 01/23/2018 SUBJECTIVE: The patient is in bed, in no acute distress. The patient was seen earlier. PHYSICAL EXAMINATION: VITAL SIGNS: Temperature is 98, blood pressure is 140/80, respiratory rate of 20, heart rate of 87. HEENT: Unremarkable. NECK: Supple. LUNGS: Have decreased breath sounds. HEART: Normal S1, S2. ABDOMEN: Soft, nontender. LABORATORY DATA: Reveals a white count of 7.1, hemoglobin of 12, platelets of 242. Chemistries reveal the patient's BUN of 8, creatinine of 1.1, procalcitonin 0.6. Serology, HIV is negative. Urine for Legionella antigen is negative. Cardiac cath is noted. ASSESSMENT AND PLAN: This is a 57-year-old who was seen early this morning in room 265, bed 1, awake and alert after cardiac catheterization, doing well, was admitted with right upper lobe pneumonia, congestive with acute congestive heart failure, hypertension, and diabetes Zithromax and Augmentin cardiac catheterization. Possible discharge today. No further antibiotics necessary. Cardiac catheterization showed severe right coronary artery disease. We will follow with you. Odell Slater MD
== END 2018-01-23 12:24 | disposition home or self-care (01) | DRG 246 ==
LOC: ED 10:30 → MERGE 13:50 → ERH 13:50 → 5RSO 17:23 → 2RNO 01-22 10:48
PROVIDERS: ADMIT Internal Medicine; ATTEND Internal Medicine
PROC: 027034Z Dilation of Coronary Artery, One Artery with Drug-eluting Intraluminal Device, Percutaneous Approach (ICD-10-PCS; principal; 2018-01-22)
PROC: 4A023N8 Measurement of Cardiac Sampling and Pressure, Bilateral, Percutaneous Approach (ICD-10-PCS; 2018-01-22)
PROC: B2111ZZ Fluoroscopy of Multiple Coronary Arteries using Low Osmolar Contrast (ICD-10-PCS; 2018-01-22)
PROC: B2161ZZ Fluoroscopy of Right and Left Heart using Low Osmolar Contrast (ICD-10-PCS; 2018-01-22)
PROC: B41F1ZZ Fluoroscopy of Right Lower Extremity Arteries using Low Osmolar Contrast (ICD-10-PCS; 2018-01-22)
PROC: 3E033PZ Introduction of Platelet Inhibitor into Peripheral Vein, Percutaneous Approach (ICD-10-PCS; 2018-01-22)
DX: I25.10 Atherosclerotic heart disease of native coronary artery without angina pectoris (principal); J18.9 Pneumonia, unspecified organism; E11.9 Type 2 diabetes mellitus without complications; I11.0 Hypertensive heart disease with heart failure; I42.9 Cardiomyopathy, unspecified; I50.9 Heart failure, unspecified; I34.0 Nonrheumatic mitral (valve) insufficiency; L80 Vitiligo; Z78.9 Other specified health status; Z79.899 Other long term (current) drug therapy; F17.210 Nicotine dependence, cigarettes, uncomplicated; Z87.01 Personal history of pneumonia (recurrent)